=== PATIENT | male | born 1935 | race Hispanic/Latino ===

== ENCOUNTER 2017-07-19 10:51 | Observation (INO) | payer MEDICARE, MEDICAID ==
[2017-07-19 11:49] LABS: #Basophils 0.1 thou/uL (0.0-0.2); #Eosinphils 0.1 thou/uL (0.0-0.7); #Lymphocytes 1.8 thou/uL (1.20-3.40); #Monocytes 1.4 thou/uL (0.11-0.59); #Neutrophils 6.9 thou/uL (1.40-6.50); %Basophils 0.6 % (0.0-1.0); %Eosinophils 1.3 % (0.0-10.0); %Lymphocytes 17.5 % (21.0-51.0); %Monocytes 13.5 % (0.0-10.0); %Neutrophils 67.1 % (42.0-75.0); Hemoglobin 13.9 g/dL (14.0-18.0); Mean Corpuscular HGB CONC 34.4 g/dL (32.0-36.0); Mean Corpuscular Hemoglobin 31.9 pg (27.0-31.0); Mean Corpuscular Volume 92.9 fl (80.0-94.0); Mean Platelet Volume 7.3 fL (7.4-10.4); Platelet Count 312 thou/uL (130-400); RBC Distribution Width 11.7 % (11.5-14.5); Red Blood Cell (RBC) Count 4.35 mill/uL (4.70-6.10); White Blood Cell (WBC) Count 10.2 thou/uL (4.8-10.8)
[2017-07-19 11:50] LABS: CO2 Tension (PvCO2) 32.5 mmHg (41.0-51.0); Calcium, Ionized 0.94 mmol/L (1.12-1.32); Hemoglobin - Calc 15.1 g/dL (12.0-18.0); O2 Tension (PvO2) 54.6 mmHg (35.0-45.0); Potassium 4.1 mmol/L (3.4-4.7); pH (Venous) 7.459 (7.35-7.45)
[2017-07-19 12:24] LABS: CKMB 2.4 ng/mL (0-6.6); Troponin I Less than 0.010 ng/mL (< 0.028)
[2017-07-19 12:27] LABS: ALT (SGPT) 13 U/L (8-55); AST (SGOT) 17 U/L (5-34); Albumin 3.6 g/dL (3.4-4.8); Alkaline Phosphatase 74 U/L (40-150); BUN (Urea Nitrogen) 15 mg/dL (8.4-25.7); Bilirubin, Total 0.8 mg/dL (0.2-1.2); CK (CPK) 124 U/L (30-200); Calc. Creatinine Clearance 0 mL/min (70-130); Carbon Dioxide 22 mmol/L (23-31); Estimated GFR-MDRD 81; Globulin 4.5 g/dL (2.4-3.5); Glucose 168 mg/dL (83-110); Protein, Total 8.1 g/dL (5.8-8.1)
[2017-07-19 12:34] LABS: Anion Gap 14 mmol/L (10-20); Chloride 98 mmol/L (98-107); Potassium 4.2 mmol/L (3.5-5.1); Sodium 129 mmol/L (136-145)
[2017-07-19] MEDS ORDERED: cefTRIAXone\\ROCEPHIN 2 GM in Sodium Chloride 0.9% 100 ML IVPB ONE (13:00)
[2017-07-19] MEDS ORDERED: Azithromycin 500 MG in Sodium Chloride 0.9% 250 ML 250 ML IVPB ONE (13:00)
--- NOTE | 2017-07-19 13:01 | RAD ---
AP VIEW OF THE CHEST: INDICATION: Cough for 3 days. COMPARISON: Prior exam dated 04/08/14. FINDINGS: There are patchy airspace opacities seen most prominently within the right middle lobe and right lowe r lobe. Subtle opacities may also be present within the left lower lobe. No pleural effusion is candy dent. Heart size and pulmonary vasculature is within normal limits. IMPRESSION: Right basilar pneumonia. Possibly some mild infiltrate within the left lung base. Recommend radiogr aphic followup to resolution. POS: [facility]
[2017-07-19 15:01] LABS: Troponin I 0.019 ng/mL (< 0.028)
[2017-07-19] MEDS ORDERED: Sodium Chloride 0.9% 1,000 ML IV SCH (15:40)
[2017-07-19] MEDS ORDERED: HYDROcodone/Acetaminophen 5/325 mg Tablet PO PRN ×3 (15:40→15:51)
[2017-07-19] MEDS ORDERED: Acetaminophen 325 MG TAB PO PRN ×2 (15:40→15:51)
[2017-07-19] MEDS ORDERED: Ondansetron HCl/PF 4 MG/2 ML Vial IVP PRN ×2 (15:40→15:51)
[2017-07-19] MEDS ORDERED: Ondansetron ODT 4 MG TAB SL PRN (15:40)
[2017-07-19] MEDS ORDERED: HYDROcodone/Acetaminophen 10/325 mg Tablet PO PRN (15:51)
[2017-07-19] MEDS ORDERED: Guaifenesin DM 100-10/5 ML UDCUP PO PRN (15:51)
[2017-07-19] MEDS ORDERED: Ondansetron ODT 4 MG TAB PO PRN (15:51)
[2017-07-19] MEDS ORDERED: Dextrose 5% in Water 1,000 ML IV PRN (15:51)
[2017-07-19] MEDS ORDERED: Dextrose 50% Abboject 50 ML SYRINGE SLOW IVP PRN (15:51)
[2017-07-19] MEDS ORDERED: HumaLOG 300 UNITS/3 ML VIAL SC PRN (15:51)
[2017-07-19 15:56] VITALS: BMI 33.9
[2017-07-19] MEDS ORDERED: Enoxaparin Sodium 40 MG/0.4 ML SYRINGE SC SCH (16:00)
[2017-07-19] MEDS ORDERED: guaiFENesin ER 600 MG TAB PO SCH ×2 (16:00→21:00)
[2017-07-19] MEDS: Benzonatate 100 MG CAP PO PRN ×2 (16:17→20:57)
--- NOTE | 2017-07-19 22:08 | HP ---
DATE OF OBSERVATION: 07/19/2017 TIME OF SERVICE: 1300. PRIMARY CARE PHYSICIAN: Andrey Rodriguez M.D. CHIEF COMPLAINT: Cough. HISTORY OF PRESENT ILLNESS: Mr. Haynes is an 82-year-old Latin-Lux[place]bour[place] male with history of coronary artery disease, diabetes and hyperlipidemia, who presents to the Emergency Department for a 3-day history of cough and cold symptoms. He has had upper respiratory congestion, sore throat, and increasing cough productive of some tannish sputum. He has had some pain with coughing over the last 24 hours. His states he has had fevers, but never took them at home. No drenching sweats or rigors. No nausea or vomiting, no diarrhea or constipation. They called the ambulance today. On EMS transport, the patient received a DuoNeb. He has not required oxygen. On arrival to the ER, he was reportedly 100% on room air. He got a second nebulizer treatment for "diminished breath sounds," but no documentation of wheezing. The patient denies wheezing. His breathing treatments held just a little bit. He was given ceftriaxone and azithromycin, we were called for admission. The patient is sitting up in bed. He denies any other current complaints. He is feeling much better than he did this morning. PAST MEDICAL HISTORY: 1. Coronary artery disease. 2. Diabetes mellitus type 2, non-insulin dependent. 3. Hyperlipidemia, primary cholesterol. 4. Hypertension, essential. PAST SURGICAL HISTORY: Include; 1. PTCA with stent placement in the past. 2. Umbilical hernia repair, remotely. HOME MEDICATIONS: 1. Terbinafine 250 mg p.o. daily. 2. Glipizide 10 mg p.o. b.i.d. 3. Glucosamine 1500 mg daily. 4. Zocor 20 mg p.o. at bedtime. 5. Losartan 25 mg daily. 6. Flomax 0.4 mg p.o. at bedtime. 7. Levothyroxine 112 mcg daily. 8. Plavix 75 mg daily. 9. Finasteride 5 mg daily. 10. [place] 3 daily. 11. Omeprazole 20 mg daily. 12. Gabapentin 600 mg p.o. b.i.d. ALLERGIES: NKDA. FAMILY HISTORY: Negative for clotting or bleeding disorders. No immune dysfunction, no premature coronary artery disease. SOCIAL HISTORY: Negative for habits x3. He lives with his and his daughter at home. REVIEW OF SYSTEMS: A 10-point review of systems was performed, negative for all other systems except as stated as per HPI. PHYSICAL EXAMINATION: VITAL SIGNS: Temperature 98.7, pulse 81, blood pressure 140/91, respiratory rate 16 and satting 100% on room air. GENERAL: He is awake. He is alert. He is oriented x3. He is acutely ill appearing obese Latin-Luxembourger male who is in no distress. HEENT: Normocephalic and atraumatic. His pupils are equal and reactive to light bilaterally. Mucous membranes are moist. No visible lesions. No thrush. NECK: Supple. He has no lymphadenopathy, no JVD, no thyromegaly, no stridor. He has normal carotid upstrokes without bruits. RESPIRATORY: Clear to auscultation bilaterally anteriorly, posteriorly in the base, he does have some faint bibasilar crackles. He has no prolonged expiratory phase. No wheezes, no rhonchi. CARDIOVASCULAR: Normal S1 and S2. No S3 or S4. Has occasional APCs. He has no audible murmurs. ABDOMEN: Soft. It is obese. It is nontender and nondistended. He has no masses, no organomegaly. No rebound, rigidity, or guarding. He has normoactive bowel sounds present in all 4 quadrants. EXTREMITIES: No cyanosis, no clubbing. He has no edema. He has 1+ dorsalis pedis and 2+ posterior tibial pulses bilaterally. SKIN: Warm, moist and well perfused. No rashes or lesions. NEUROLOGIC: Cranial nerves II-XII are grossly intact. He has no focal neurologic deficits. He has normal speech pattern and 5/5 strength. MUSCULOSKELETAL: Hips, knees, elbows, shoulders, ankles and wrists are all normal to inspection. He has no palpable effusions and no signs of inflammation. LABORATORY DATA: Sodium is 129, potassium is 4.2, chloride 98, bicarbonate 22, BUN 15, creatinine 0.89, calcium 9.0 and glucose of 168. Liver functions are completely within normal limits. CBC showed a white count of 10.2 with a normal differential, hemoglobin is 13.9 , hematocrit of 40.4 and and platelet count is 312,000. BNP is normal at 71.4. CK-MB normal 2.4, and troponin I is undetectable and less than 0.010. IMAGING DATA: Chest x-ray showed right middle lobe, right lower lobe and possible left lower lobe patchy opacity. EKG is unchanged from his 2015. He has a normal sinus rhythm. He does have evidence of a right bundle branch block in the inferior leads. There are no ST-T changes. ASSESSMENT AND PLAN: 1. Community-acquired pneumonia: The patient has either atypical or viral pneumonia given his pattern of patchy opacities in multiple areas. We will put him on levofloxacin 500 mg daily. He received ceftriaxone and azithromycin in the Emergency Department to cover him today, so we will start him on levofloxacin in the morning. In the meantime, we will place him on Mucinex 1200 mg b.i.d., and have DuoNebs as needed. 2. Coronary artery disease, no chest pain except when he coughs. EKG is unchanged. His initial biomarkers were normal. 3. Diabetes mellitus type 2: Continue his glipizide. We will place him on sliding scale insulin q.i.d. a.c. and at bedtime Accu-Cheks. 4. Hyperlipidemia, primary cholesterol, on Zocor. We will continue. 5. Hypertension: Continue his home medications. The patient's CURB-65 score is only 1. Likely could be changed and treated as an outpatient; however, emergency room provider reports "diminished" breath sounds on arrival and did receive 2 DuoNebs before I had a chance to see him. The patient admitted to a small improvement with the [facility], so we will place him in observation and watch him overnight. MARIOLA
[2017-07-20 05:00] LABS: #Eosinphils 0.1 thou/uL (0.0-0.7); #Lymphocytes 2.1 thou/uL (1.20-3.40); #Monocytes 1.5 thou/uL (0.11-0.59); #Neutrophils 7.1 thou/uL (1.40-6.50); %Basophils 0.2 % (0.0-1.0); %Eosinophils 1.3 % (0.0-10.0); %Lymphocytes 19.6 % (21.0-51.0); %Monocytes 13.5 % (0.0-10.0); %Neutrophils 65.4 % (42.0-75.0); Hemoglobin 12.8 g/dL (14.0-18.0); Mean Corpuscular HGB CONC 33.5 g/dL (32.0-36.0); Mean Corpuscular Hemoglobin 31.3 pg (27.0-31.0); Mean Corpuscular Volume 93.3 fl (80.0-94.0); Mean Platelet Volume 7.2 fL (7.4-10.4); Platelet Count 308 thou/uL (130-400); RBC Distribution Width 11.6 % (11.5-14.5); Red Blood Cell (RBC) Count 4.09 mill/uL (4.70-6.10); White Blood Cell (WBC) Count 10.9 thou/uL (4.8-10.8)
[2017-07-20 05:24] LABS: Anion Gap 13 mmol/L (10-20); BUN (Urea Nitrogen) 16 mg/dL (8.4-25.7); Calc. Creatinine Clearance 67 mL/min (70-130); Calcium 8.6 mg/dL (7.8-10.44); Carbon Dioxide 23 mmol/L (23-31); Chloride 96 mmol/L (98-107); Estimated GFR-MDRD 76; Glucose 147 mg/dL (83-110); Potassium 3.9 mmol/L (3.5-5.1); Sodium 128 mmol/L (136-145)
[2017-07-20] MEDS: Benzonatate 100 MG CAP PO PRN (05:43)
[2017-07-20 07:58] VITALS: BP 142/69; TEMP 98.1
[2017-07-20] MEDS ORDERED: guaiFENesin ER 600 MG TAB PO SCH (09:00)
[2017-07-20] MEDS ORDERED: Enoxaparin Sodium 40 MG/0.4 ML SYRINGE SC SCH (09:00)
== END 2017-07-20 10:36 | disposition home or self-care (01) ==
LOC: ERS 10:51 → 2SW 13:47 → ERS 14:56 → 2SW 18:08
PROVIDERS: ADMIT Internal Medicine Infectious Disease; ATTEND Internal Medicine Infectious Disease
DX: J18.9 Pneumonia, unspecified organism (principal); I25.10 Atherosclerotic heart disease of native coronary artery without angina pectoris; E11.9 Type 2 diabetes mellitus without complications; E78.5 Hyperlipidemia, unspecified; I10 Essential (primary) hypertension; Z79.01 Long term (current) use of anticoagulants; Z79.84 Long term (current) use of oral hypoglycemic drugs; Z79.899 Other long term (current) drug therapy; Z95.5 Presence of coronary angioplasty implant and graft; Z98.890 Other specified postprocedural states
CPT/HCPCS: 71045; 80048; 80053; 82330; 82435; 82550; 82553; 82803; 82962; 83735; 83880; 84132; 84295; 84484 ×2; 85014; 85025 ×2; 87040; 87804 ×2; 93005; 94640; 96365; 96367; 96372 ×2; 97139; 99285; G0378; 36415; 36416; J0456; J0696; J1650; J7050; J7620

== ENCOUNTER 2020-06-08 23:20 | Inpatient (IN) | payer MEDICARE, MEDICAID ==
[2020-06-08] MEDS ORDERED: Senokot S 8.6-50 MG TAB PO PRN (23:56)
[2020-06-08] MEDS ORDERED: Acetaminophen 325 MG TAB PO PRN (23:56)
[2020-06-09] MEDS ORDERED: Dextrose 5% in Water 1,000 ML IV PRN (00:03)
[2020-06-09] MEDS ORDERED: Dextrose 50% Abboject 50 ML SYRINGE SLOW IVP PRN (00:03)
[2020-06-09] MEDS ORDERED: Benzonatate 100 MG CAP PO PRN (01:12)
--- NOTE | 2020-06-09 03:09 | HP ---
PRIMARY CARE PHYSICIAN: Dr. Rodriguez. CHIEF COMPLAINT: Decreased appetite, weakness. HISTORY OF PRESENT ILLNESS: Mr. Dallas Frank is an 85-year-old man who was brought to the emergency room in [place] on 06/08/2020 for generalized weakness, decreased activity, decreased oral intake for the past week. He has had a cough per family. They deny fevers, vomiting, diarrhea. Urinary output is diminished. Typically, he ambulates with the use of a walker, but for the past week he has been more somnolent and unwilling or unable to get up and do his normal activities. Reports appetite is decreased, oral fluid intake is decreased. Denies any known exposure to COVID-19. Has a past medical history of coronary artery disease. He has had an angioplasty in the past. He is diabetic type 2, hyperlipidemia, hypertension, hypothyroid. In the emergency room at [place], he was found to be positive for COVID-19. His blood work appeared abnormal when it was compared to the last lab work we have on file from 2018. White blood cell count 5.9, hemoglobin 11.8, hematocrit is 34.9, and platelet count 326. D-dimer elevated at 1.32. Sodium 135, potassium 4, BUN is 61, creatinine is 3.31. When the last value we had in our system of July of 2017, it was normal at 0.94, glucose was also elevated at 147. While he was in the emergency room, he was treated with dexamethasone, 1 g of Rocephin and 500 mL of fluid and then sent over to [facility] for a direct admission for further management. Chest x-ray in the emergency room shows prominent lung markings and few vaguely patchy areas in the lower lobes, upper right more than left and consistent with COVID in the right clinical setting. PAST MEDICAL HISTORY: See above. PAST SURGICAL HISTORY: He has had an umbilical hernia repair. PSYCHIATRIC HISTORY: None. SOCIAL HISTORY: He denies any alcohol drug use. No smoking history. ALLERGIES: NONE. HOME MEDICATIONS: 1. Plavix 75 mg p.o. daily. 2. Glipizide 10 mg p.o. b.i.d. 3. Glucosamine 1 cap p.o. daily. 4. Lamisil 250 mg p.o. daily. 5. Levothyroxine 112 mcg p.o. daily. 6. Losartan 25 mg p.o. daily. 7. Gabapentin 10 mg p.o. b.i.d. 8. Prilosec 20 mg p.o. daily. 9. Finasteride 5 mg p.o. daily. 10. Flomax 0.4 mg p.o. daily. 11. Tylenol Extra Strength 1000 mg p.o. at bedtime. 12. Zocor 20 mg p.o. at bedtime. REVIEW OF SYSTEMS: The patient reports fatigue, malaise, generalized weakness, cough. Denies fever or chills. Denies shortness of breath. Denies abdominal pain, nausea, vomiting, diarrhea. All systems were reviewed and are negative unless mentioned above or in HPI. PHYSICAL EXAMINATION: VITAL SIGNS: Temp is 97.7, pulse is 88, respiratory rate is 18, pO2 sats are 100% on room air, blood pressure is 147/74. CONSTITUTIONAL: He is alert and oriented to person, place, and time and appears nontoxic. HEAD: Atraumatic and normocephalic. Mucous membranes are dry. NECK: Normal range of motion. No tenderness. RESPIRATORY: Decreased lung sounds in bilateral lower lobes. Chest expansion is equal. CARDIOVASCULAR: Regular rate and rhythm. Heart sounds are normal. ABDOMEN: Nontender. Bowel sounds are heard. BACK: Normal range of motion. No tenderness. EXTREMITIES: Lower extremity, normal range of motion. Motor strength is normal. Pedal pulses are normal. NEUROLOGIC: He is oriented to person and place. SKIN: Warm, dry and normal in color. IMAGING: The EKG in the emergency room shows beats per minute 75. Complete right bundle-branch normal sinus rhythm, left axis deviation, right bundle branch block. PLAN/ASSESSMENT: 1. COVID-19 pneumonia. The patient was given dexamethasone 10 in the emergency room at [place]. We will continue this 6 mg p.o. daily. We are ordering a ferritin, TSH, LDH. He will wear albuterol inhaler as needed, . 2. Acute kidney injury. Creatinine up to 3. The last time it was checked here in 2018, it was normal. We have added a nephrology consult. We will hold any nephrotoxic medication. 3. History of hypothyroidism. Check a thyroid stimulating hormone level. Restart home levothyroxine dose. 4. History of hypertension. We will restart his home medications. 5. History of hyperlipidemia. We will check fasting lipids. Restart his home medication. 6. History of diabetes type 2, before meals and at bedtime Accu-Cheks with sliding scale for coverage. 7. We will check an A1c. 8. Sequential compression devices for deep venous thrombosis prophylaxis. 9. We will restart his proton pump inhibitor for peptic ulcer disease prevention. 10. Case discussed with Dr. Brewer. 11. Hospital course dependent on clinical findings. Job ID: [id number]
[2020-06-09] MEDS: HumaLOG 300 UNITS/3 ML VIAL SC PRN ×4 (04:24→20:00)
[2020-06-09] MEDS: Levothyroxine Sodium 112 MCG TAB PO SCH (04:25)
[2020-06-09 07:40] LABS: #Lymphocytes 0.5 thou/uL (1.20-3.40); #Monocytes 0.1 thou/uL (0.11-0.59); #Neutrophils 2.5 thou/uL (1.40-6.50); %Eosinophils 0.1 % (0.0-10.0); %Monocytes 1.7 % (0.0-10.0); %Neutrophils 83.2 % (42.0-75.0); Hemoglobin 11.8 g/dL (14.0-18.0); Mean Corpuscular HGB CONC 33.2 g/dL (32.0-36.0); Mean Corpuscular Hemoglobin 29.6 pg (27.0-31.0); Platelet Count 364 thou/uL (130-400); RBC Distribution Width 12.2 % (11.5-14.5)
[2020-06-09 07:55] LABS: ALT (SGPT) 14 U/L (8-55); AST (SGOT) 26 U/L (5-34); Albumin 3.5 g/dL (3.4-4.8); Alkaline Phosphatase 94 U/L (40-110); Anion Gap 20 mmol/L (10-20); BUN (Urea Nitrogen) 58 mg/dL (8.4-25.7); Bilirubin, Total 0.4 mg/dL (0.2-1.2); CRP (Inflammatory) 10.68 mg/dL (= or < 0.5); Calc. Creatinine Clearance 20 mL/min (70-130); Calcium 8.7 mg/dL (7.8-10.44); Carbon Dioxide 15 mmol/L (23-31); Cardiac Risk 4.9 (Less than 4.5); Chloride 104 mmol/L (98-107); Globulin 4.6 g/dL (2.4-3.5); Glucose 201 mg/dL (83-110); Potassium 4.3 mmol/L (3.5-5.1); Protein, Total 8.1 g/dL (5.8-8.1); Sodium 135 mmol/L (136-145)
[2020-06-09] MEDS ORDERED: Dexamethasone 4 MG TAB PO SCH (08:00)
[2020-06-09] MEDS: Gabapentin 100 MG CAP PO SCH ×2 (08:00→20:02)
[2020-06-09] MEDS: Clopidogrel Bisulfate 75 MG TAB PO SCH (08:00)
[2020-06-09] MEDS: guaiFENesin ER 600 MG TAB PO SCH ×2 (08:01→20:01)
[2020-06-09 08:11] LABS: Ferritin 252.26 ng/mL (22-322); Thyroid Stimulating Hormone 1.375 uIU/mL (0.35-4.94)
[2020-06-09] MEDS ORDERED: Enoxaparin Sodium 40 MG/0.4 ML SYRINGE SC SCH (09:00)
[2020-06-09] MEDS ORDERED: Losartan 25 MG TAB PO SCH (09:00)
[2020-06-09] MEDS: Sodium Chloride 0.9% 1,000 ML IV SCH (09:59)
[2020-06-09] MEDS: Heparin 5,000 UNITS/ML VIAL SC SCH ×2 (14:49→20:03)
--- NOTE | 2020-06-09 16:47 | PDOC.HOSPP ---
- Subjective Encounter Date: 06/09/20 Encounter Time: 10:30 Subjective: Patient sitting up on the side of the bed no complaints. - Objective Vital Signs & Weight: Vital Signs (12 hours) Temp Pulse Resp BP BP Pulse Ox 06/09/20 11:00 97.3 F L 77 20 128/69 99 06/09/20 08:00 97.4 F L 86 20 107/65 100 Weight Weight 184 lb 12.8 oz I&O: 06/08/20 06/09/20 06/10/20 06:59 06:59 06:59 Intake Total 480 Balance 480 Result Diagrams: 06/09/20 06:57 06/09/20 06:57 Additional Labs: Accuchecks 06/09/20 06/09/20 06/09/20 11:18 04:17 01:41 POC Glucose 238 H 220 H 187 H Hospitalist ROS - Review of Systems Cardiovascular: denies: chest pain, palpitations, orthopnea, paroxysmal noc. dyspnea, edema, light headedness, other Gastrointestinal: denies: nausea, vomiting, abdominal pain, diarrhea, constipation, melena, hematochezia, other Genitourinary: denies: dysuria, frequency, incontinence, hematuria, retention, other - Medication Medications: Active Medications Generic Name Dose Route Start Last Admin Trade Name Freq PRN Reason Stop Dose Admin Clopidogrel Bisulfate 75 mg 06/09/20 09:00 06/09/20 08:00 Clopidogrel Bisulfate 75 Mg Tab PO 75 mg DAILY QUEENIE Administration Gabapentin 100 mg 06/09/20 09:00 06/09/20 08:00 Gabapentin 100 Mg Cap PO 100 mg BID QUEENIE Administration Guaifenesin 1,200 mg 06/09/20 09:00 06/09/20 08:01 Guaifenesin Er 600 Mg Tab PO 1,200 mg Q12HR QUEENIE Administration Heparin Sodium (Porcine) 5,000 units 06/09/20 15:00 06/09/20 14:49 Heparin 5,000 Units/Ml Vial SC 5,000 units TID QUEENIE Administration Sodium Chloride 1,000 mls @ 50 mls/hr 06/09/20 10:00 06/09/20 09:59 Normal Saline 0.9% IV 1,000 mls .Q20H QUEENIE Administration Insulin Human Lispro 0 units 06/09/20 00:03 06/09/20 12:08 Humalog 300 Units/3 Ml Vial SC 3 units .MILD SLIDING SCALE PRN Administration Mild Correctional Scale Levothyroxine Sodium 112 mcg 06/09/20 06:00 06/09/20 04:25 Levothyroxine Sodium 112 Mcg Tab PO 112 mcg 0600 QUEENIE Administration Pantoprazole Sodium 40 mg 06/09/20 09:00 06/09/20 08:00 Pantoprazole 40 Mg Tab PO 40 mg DAILY QUEENIE Administration - Exam Neck: negative: supple, symmetric, no JVD, no thyromegaly, no lymphadenopathy, no carotid bruit, JVD Heart: negative: RRR, no murmur, no gallops, no rubs, normal peripheral pulses, irregular, diminshed peripheral pulses, murmur present, II/IV, III/IV Respiratory: rhonchi Gastrointestinal: negative: soft, non-tender, non-distended, normal bowel sounds, no palpable masses, no hepatomegaly, no splenomegaly, no bruit, no guarding, no rigidity, tender to palpation, distended, diminished bowl sounds, voluntary guarding Hosp A/P (1) Acute respiratory failure with hypoxia Code(s): J96.01 - ACUTE RESPIRATORY FAILURE WITH HYPOXIA Status: Acute (2) Acute kidney injury Code(s): N17.9 - ACUTE KIDNEY FAILURE, UNSPECIFIED Status: Acute (3) COVID-19 Code(s): U07.1 - COVID-19 Status: Acute (4) DM2 (diabetes mellitus, type 2) Status: Acute (5) HLD (hyperlipidemia) Code(s): E78.5 - HYPERLIPIDEMIA, UNSPECIFIED Status: Acute (6) HTN (hypertension) Code(s): I10 - ESSENTIAL (PRIMARY) HYPERTENSION Status: Acute - Plan Patient is not a candidate for remdesivir given his elevated creatinine. We will continue IV steroids, DVT prophylaxis with heparin. Will check INR and CRP in a.m. We will continue home medications. Patient has been on room air I will talk with the nurse to see if they can ambulate the patient to see if he desats. If he does not require oxygen he probably does not require steroids.
[2020-06-09] MEDS: Atorvastatin Calcium 10 MG TAB PO SCH (20:02)
--- NOTE | 2020-06-09 20:36 | ULT ---
Renal sonogram HISTORY: Renal failure. FINDINGS: The right kidney is 9.0 cm length and the left is 11.0 cm. Diffuse thinning of the cortex. No hydronephrosis. 3.9 cm exophytic cyst projects superiorly from the cortex of the left kidney. Urinary bladder has a normal appearance with bilateral ureteral jets. IMPRESSION : No acute abnormalities are demonstrated.
--- NOTE | 2020-06-09 21:12 | CON ---
DATE OF CONSULTATION: 06/09/2020 CONSULTING PHYSICIAN: JUSTIN Shultz REASON FOR CONSULTATION: Acute kidney injury. REASON FOR ADMISSION: Weakness. HISTORY OF PRESENT ILLNESS: This is an 85-year-old male with history of diabetes, hyperlipidemia, hypertension, hypothyroidism, came to the hospital with weakness and is being admitted. He was found to have acute kidney injury with creatinine of 3.3, is improved to 3.1. Baseline creatinine 0.9. Nephrology consulted. The patient is also COVID-19 positive. PAST MEDICAL HISTORY: Positive for; 1. Type 2 diabetes. 2. Hypertension. 3. Hyperlipidemia. 4. Hypothyroidism. 5. Coronary artery disease. 6. COVID-19 infection. PAST SURGICAL HISTORY: Umbilical repair. HOME MEDICATIONS: Reviewed. ALLERGIES: NO KNOWN DRUG ALLERGIES. SOCIAL HISTORY: No smoking, alcohol, or illicit drugs. FAMILY HISTORY: No history of kidney disease. REVIEW OF SYSTEMS: Could not be obtained. PHYSICAL EXAMINATION: VITAL SIGNS: Temperature 97.3, pulse 77, respiratory rate 20, blood pressure 128/69. The patient is on COVID isolation. LABORATORY DATA: Potassium is 4.3, BUN is 58, creatinine is 3.1. Hemoglobin 11.8. ASSESSMENT AND PLAN: 1. Acute kidney injury secondary to hemodynamic injury. Agree with hydration. Avoid nephrotoxins. 2. Edema. 3. History of hypertension. 4. Hyponatremia. Plan is to start gentle hydration. Check renal ultrasound and we will follow. Job ID: [id number]
[2020-06-10] MEDS: HumaLOG 300 UNITS/3 ML VIAL SC PRN ×4 (06:06→20:00)
[2020-06-10] MEDS: Sodium Chloride 0.9% 1,000 ML IV SCH (06:07)
[2020-06-10] MEDS: Levothyroxine Sodium 112 MCG TAB PO SCH (06:07)
[2020-06-10 07:28] LABS: INR-International Normal Ratio 1.2; PTT 33.2 sec (22.9-36.1); Prothrombin Time 15.2 sec (12.0-14.7)
[2020-06-10 07:42] LABS: ALT (SGPT) 11 U/L (8-55); AST (SGOT) 19 U/L (5-34); Albumin 3.3 g/dL (3.4-4.8); Alkaline Phosphatase 77 U/L (40-110); Anion Gap 12 mmol/L (10-20); BUN (Urea Nitrogen) 61 mg/dL (8.4-25.7); Bilirubin, Total 0.4 mg/dL (0.2-1.2); CRP (Inflammatory) 5.15 mg/dL (= or < 0.5); Calc. Creatinine Clearance 22 mL/min (70-130); Calcium 8.3 mg/dL (7.8-10.44); Carbon Dioxide 17 mmol/L (23-31); Chloride 107 mmol/L (98-107); Globulin 3.9 g/dL (2.4-3.5); Glucose 168 mg/dL (83-110); Potassium 4.1 mmol/L (3.5-5.1); Protein, Total 7.2 g/dL (5.8-8.1); Sodium 132 mmol/L (136-145)
[2020-06-10] MEDS: Dexamethasone 4 mg/ml Vial SLOW IVP SCH (08:02)
[2020-06-10] MEDS: Heparin 5,000 UNITS/ML VIAL SC SCH ×3 (08:03→20:01)
[2020-06-10] MEDS: Clopidogrel Bisulfate 75 MG TAB PO SCH (08:03)
[2020-06-10] MEDS: Tamsulosin HCl 0.4 MG CAP PO SCH (08:03)
[2020-06-10] MEDS: Gabapentin 100 MG CAP PO SCH ×2 (08:03→20:03)
[2020-06-10] MEDS: guaiFENesin ER 600 MG TAB PO SCH ×2 (08:03→20:04)
[2020-06-10] MEDS: Finasteride 5 MG TAB PO SCH (08:03)
[2020-06-10] MEDS ORDERED: Dexamethasone 20 MG/5 ML VIAL SLOW IVP SCH (09:00)
--- NOTE | 2020-06-10 13:43 | PDOC.HOSPP ---
- Subjective Encounter Date: 06/10/20 Encounter Time: 12:30 Subjective: pt up in bed no complains - Objective Vital Signs & Weight: Vital Signs (12 hours) Temp Pulse Resp BP Pulse Ox 06/10/20 11:17 97.3 F L 66 20 121/64 95 06/10/20 08:27 95 06/10/20 07:36 97.3 F L 62 18 125/63 95 06/10/20 04:00 97.3 F L 62 126/53 L 99 Weight Weight 184 lb 12.8 oz I&O: 06/09/20 06/10/20 06/11/20 06:59 06:59 06:59 Intake Total 720 Balance 720 Result Diagrams: 06/09/20 06:57 06/10/20 07:02 Additional Labs: Accuchecks 06/10/20 06/10/20 06/09/20 11:06 04:39 19:44 POC Glucose 257 H 172 H 257 H 06/09/20 16:53 POC Glucose 238 H Hospitalist ROS - Review of Systems Cardiovascular: denies: chest pain, palpitations, orthopnea, paroxysmal noc. dyspnea, edema, light headedness, other Gastrointestinal: denies: nausea, vomiting, abdominal pain, diarrhea, constipation, melena, hematochezia, other Genitourinary: denies: dysuria, frequency, incontinence, hematuria, retention, other - Medication Medications: Active Medications Generic Name Dose Route Start Last Admin Trade Name Freq PRN Reason Stop Dose Admin Atorvastatin Calcium 10 mg 06/09/20 21:00 06/09/20 20:02 Atorvastatin Calcium 10 Mg Tab PO 10 mg HS QUEENIE Administration Clopidogrel Bisulfate 75 mg 06/09/20 09:00 06/10/20 08:03 Clopidogrel Bisulfate 75 Mg Tab PO 75 mg DAILY QUEENIE Administration Dexamethasone 6 mg 06/10/20 09:00 06/10/20 08:02 Dexamethasone 4 Mg/Ml Vial SLOW IVP 6 mg DAILY QUEENIE Administration Finasteride 5 mg 06/10/20 09:00 06/10/20 08:03 Finasteride 5 Mg Tab PO 5 mg DAILY QUEENIE Administration Gabapentin 100 mg 06/09/20 09:00 06/10/20 08:03 Gabapentin 100 Mg Cap PO 100 mg BID QUEENIE Administration Guaifenesin 1,200 mg 06/09/20 09:00 06/10/20 08:03 Guaifenesin Er 600 Mg Tab PO 1,200 mg Q12HR QUEENIE Administration Heparin Sodium (Porcine) 5,000 units 06/09/20 15:00 06/10/20 08:03 Heparin 5,000 Units/Ml Vial SC 5,000 units TID QUEENIE Administration Sodium Chloride 1,000 mls @ 50 mls/hr 06/09/20 10:00 06/10/20 06:07 Normal Saline 0.9% IV 1,000 mls .Q20H QUEENIE Administration Insulin Human Lispro 0 units 06/09/20 00:03 06/10/20 11:22 Humalog 300 Units/3 Ml Vial SC 4 units .MILD SLIDING SCALE PRN Administration Mild Correctional Scale Insulin Human Lispro 0 units 06/09/20 00:03 06/09/20 20:00 Humalog 300 Units/3 Ml Vial SC 3 unit .BEDTIME SLIDING SC PRN Administration Bedtime Correctional Scale Levothyroxine Sodium 112 mcg 06/09/20 06:00 06/10/20 06:07 Levothyroxine Sodium 112 Mcg Tab PO 112 mcg 0600 QUEENIE Administration Pantoprazole Sodium 40 mg 06/09/20 09:00 06/10/20 08:03 Pantoprazole 40 Mg Tab PO 40 mg DAILY QUEENIE Administration Tamsulosin HCl 0.4 mg 06/10/20 09:00 06/10/20 08:03 Tamsulosin Hcl 0.4 Mg Cap PO 0.4 mg DAILY QUEENIE Administration - Exam Heart: negative: RRR, no murmur, no gallops, no rubs, normal peripheral pulses, irregular, diminshed peripheral pulses, murmur present, II/IV, III/IV Respiratory: negative: CTAB, no wheezes, no rales, no ronchi, normal chest expansion, no tachypnea, normal percussion, rales, rhonchi, tachypneic, wheezes Gastrointestinal: negative: soft, non-tender, non-distended, normal bowel sounds, no palpable masses, no hepatomegaly, no splenomegaly, no bruit, no guarding, no rigidity, tender to palpation, distended, diminished bowl sounds, voluntary guarding Extremities: 1+ LE edema Hosp A/P (1) Acute respiratory failure with hypoxia Code(s): J96.01 - ACUTE RESPIRATORY FAILURE WITH HYPOXIA Status: Acute (2) Acute kidney injury Code(s): N17.9 - ACUTE KIDNEY FAILURE, UNSPECIFIED Status: Acute (3) COVID-19 Code(s): U07.1 - COVID-19 Status: Acute (4) DM2 (diabetes mellitus, type 2) Status: Acute (5) HLD (hyperlipidemia) Code(s): E78.5 - HYPERLIPIDEMIA, UNSPECIFIED Status: Acute (6) HTN (hypertension) Code(s): I10 - ESSENTIAL (PRIMARY) HYPERTENSION Status: Acute - Plan Patient is not a candidate for remdesivir given his elevated creatinine. We will continue IV steroids, DVT prophylaxis with heparin. Will check INR and CRP in a.m. We will continue home medications. Patient has been on room air I will talk with the nurse to see if they can ambulate the patient to see if he desats. If he does not require oxygen he probably does not require steroids. 06/10 pt is not a candidate for remdesivir. Creatinine is improving. will continue to monitor. Tried to call pt's daughter Yvonne was unable to leave message since her voicemail has not been set up. Tried to call pt's granddaughter which stated not taking calls at this time.
[2020-06-10] MEDS ORDERED: Insulin Glargine 8 UNITS in Pre-Filled Syringe 1 EACH SC SCH (13:45)
--- NOTE | 2020-06-10 14:42 | PRG ---
DATE OF SERVICE: 06/10/2020 SUBJECTIVE: The patient is in COVID isolation. OBJECTIVE: VITAL SIGNS: Temperature 97.3, pulse respiratory rate 20, pressure 121/64, oxygen saturation 95% on room air. LABORATORY DATA: Potassium 4.1, BUN is 61, creatinine is 2.8 from 3.1 yesterday. ASSESSMENT AND PLAN: 1. Acute kidney injury on chronic kidney disease, stage 2. Continue hydration if tolerated. 2. History of hypertension. 3. Hyponatremia. 4. Edema, mild. 5. Hypoalbuminemia. Continue hydration. Monitor labs and cardiac respiratory status. Job ID: [id number]
[2020-06-10] MEDS: Atorvastatin Calcium 10 MG TAB PO SCH (20:03)
[2020-06-11] MEDS: Sodium Chloride 0.9% 1,000 ML IV SCH ×3 (01:00→20:22)
[2020-06-11] MEDS: Levothyroxine Sodium 112 MCG TAB PO SCH (05:05)
[2020-06-11] MEDS: Heparin 5,000 UNITS/ML VIAL SC SCH ×3 (08:01→20:05)
[2020-06-11] MEDS: Dexamethasone 4 mg/ml Vial SLOW IVP SCH (08:01)
[2020-06-11] MEDS: Finasteride 5 MG TAB PO SCH (08:02)
[2020-06-11] MEDS: Gabapentin 100 MG CAP PO SCH ×2 (08:02→20:04)
[2020-06-11] MEDS: Clopidogrel Bisulfate 75 MG TAB PO SCH (08:02)
[2020-06-11] MEDS: guaiFENesin ER 600 MG TAB PO SCH ×2 (08:02→20:04)
[2020-06-11] MEDS: Tamsulosin HCl 0.4 MG CAP PO SCH (08:02)
--- NOTE | 2020-06-11 08:53 | PDOC.HOSPP ---
- Subjective Encounter Date: 06/11/20 Encounter Time: 11:00 Subjective: Patient without complaints. He states that he has been ambulating. However per physical therapy notes patient needs significant assistance and they recommend rehab. - Objective Vital Signs & Weight: Vital Signs (12 hours) Temp Pulse Resp BP Pulse Ox 06/11/20 07:29 97.3 F L 116 H 20 141/56 H 100 06/11/20 04:49 97.3 F L 60 18 128/64 98 06/11/20 01:11 65 16 147/62 H 99 Weight Weight 184 lb 12.8 oz I&O: 06/10/20 06/11/20 06/12/20 06:59 06:59 06:59 Intake Total 1680 2400 Output Total 725 Balance 955 2400 Result Diagrams: 06/09/20 06:57 06/11/20 11:39 Additional Labs: Accuchecks 06/11/20 06/10/20 06/10/20 04:42 19:58 16:17 POC Glucose 130 H 224 H 207 H 06/10/20 11:06 POC Glucose 257 H Hospitalist ROS - Review of Systems Constitutional: denies: fever, chills Respiratory: denies: cough, shortness of breath Cardiovascular: denies: chest pain, palpitations Gastrointestinal: denies: nausea, vomiting, abdominal pain - Medication Medications: Active Medications Generic Name Dose Route Start Last Admin Trade Name Freq PRN Reason Stop Dose Admin Atorvastatin Calcium 10 mg 06/09/20 21:00 06/10/20 20:03 Atorvastatin Calcium 10 Mg Tab PO 10 mg HS QUEENIE Administration Clopidogrel Bisulfate 75 mg 06/09/20 09:00 06/11/20 08:02 Clopidogrel Bisulfate 75 Mg Tab PO 75 mg DAILY QUEENIE Administration Dexamethasone 6 mg 06/10/20 09:00 06/11/20 08:01 Dexamethasone 4 Mg/Ml Vial SLOW IVP 6 mg DAILY QUEENIE Administration Finasteride 5 mg 06/10/20 09:00 06/11/20 08:02 Finasteride 5 Mg Tab PO 5 mg DAILY UQEENIE Administration Gabapentin 100 mg 06/09/20 09:00 06/11/20 08:02 Gabapentin 100 Mg Cap PO 100 mg BID QUEENIE Administration Guaifenesin 1,200 mg 06/09/20 09:00 06/11/20 08:02 Guaifenesin Er 600 Mg Tab PO 1,200 mg Q12HR QUEENIE Administration Heparin Sodium (Porcine) 5,000 units 06/09/20 15:00 06/11/20 08:01 Heparin 5,000 Units/Ml Vial SC 5,000 units TID QUEENIE Administration Sodium Chloride 1,000 mls @ 50 mls/hr 06/09/20 10:00 06/11/20 01:00 Normal Saline 0.9% IV 1,000 mls .Q20H QUEENIE Administration Insulin Human Lispro 0 units 06/09/20 00:03 06/10/20 16:32 Humalog 300 Units/3 Ml Vial SC 3 units .MILD SLIDING SCALE PRN Administration Mild Correctional Scale Insulin Human Lispro 0 units 06/09/20 00:03 06/10/20 20:00 Humalog 300 Units/3 Ml Vial SC 2 unit .BEDTIME SLIDING SC PRN Administration Bedtime Correctional Scale Levothyroxine Sodium 112 mcg 06/09/20 06:00 06/11/20 05:05 Levothyroxine Sodium 112 Mcg Tab PO 112 mcg 0600 QUEENIE Administration Pantoprazole Sodium 40 mg 06/09/20 09:00 06/11/20 08:02 Pantoprazole 40 Mg Tab PO 40 mg DAILY QUEENIE Administration Tamsulosin HCl 0.4 mg 06/10/20 09:00 06/11/20 08:02 Tamsulosin Hcl 0.4 Mg Cap PO 0.4 mg DAILY QUEENIE Administration - Exam General Appearance: NAD, awake alert ENT: moist mucosa Heart: RRR, no murmur, no gallops, no rubs Respiratory: CTAB, no wheezes, no rales, no ronchi Gastrointestinal: soft, non-tender, non-distended, normal bowel sounds Psychiatric: normal affect, normal behavior, A&O x 3 Hosp A/P (1) Acute kidney injury Code(s): N17.9 - ACUTE KIDNEY FAILURE, UNSPECIFIED Status: Acute (2) COVID-19 Code(s): U07.1 - COVID-19 Status: Acute (3) CAD (coronary artery disease) Code(s): I25.10 - ATHSCL HEART DISEASE OF [place] CORONARY ARTERY W/O ANG PCTRS Status: Chronic (4) DM2 (diabetes mellitus, type 2) Status: Chronic (5) HLD (hyperlipidemia) Code(s): E78.5 - HYPERLIPIDEMIA, UNSPECIFIED Status: Chronic (6) HTN (hypertension) Code(s): I10 - ESSENTIAL (PRIMARY) HYPERTENSION Status: Chronic - Plan 06/09 Patient is not a candidate for remdesivir given his elevated creatinine. We will continue IV steroids, DVT prophylaxis with heparin. Will check INR and CRP in a.m. We will continue home medications. Patient has been on room air I will talk with the nurse to see if they can ambulate the patient to see if he desats. If he does not require oxygen he probably does not require steroids. 06/10 pt is not a candidate for remdesivir. Creatinine is improving. will continue to monitor. Tried to call pt's daughter Yvonne was unable to leave message since her voicemail has not been set up. Tried to call pt's granddaughter which stated not taking calls at this time. 06/11 Patient improving with PT. Not requiring any oxygen his entire stay so will d/c dexamethasone. Creatinine improved with IV fluids, now stalled out around 2.8-2.9. Will discuss with Dr. Still and see if needs further inpatient care. Otherwise patient likely can go home with home health PT/OT if continues to improve in the next 24 hours. If not able to go home, will need SNF stay due to his Covid-19 positive status.
[2020-06-11] MEDS: HumaLOG 300 UNITS/3 ML VIAL SC PRN ×2 (11:39→16:27)
[2020-06-11 12:15] LABS: Anion Gap 15 mmol/L (10-20); BUN (Urea Nitrogen) 67 mg/dL (8.4-25.7); Calc. Creatinine Clearance 21 mL/min (70-130); Calcium 7.9 mg/dL (7.8-10.44); Carbon Dioxide 18 mmol/L (23-31); Chloride 108 mmol/L (98-107); Glucose 195 mg/dL (83-110); Potassium 4.5 mmol/L (3.5-5.1); Sodium 136 mmol/L (136-145)
--- NOTE | 2020-06-11 19:20 | PRG ---
DATE OF SERVICE: 06/11/2020 SUBJECTIVE: An 85-year-old gentleman, being seen for acute kidney injury. The patient denied nausea, vomiting, or chest pain. PHYSICAL EXAMINATION: GENERAL: The patient is awake and alert. VITAL SIGNS: Afebrile, pulse 75, breathing at 16, blood pressure 148/70. HEENT: Head normocephalic and atraumatic. Eyes intact, no ulcers. Nose intact, no ulcers. Ears intact, no ulcers. NECK: Supple. No JVD. CHEST: Symmetrical and clear. CARDIOVASCULAR: Shows S1 and S2, no rub, no murmur. GASTROINTESTINAL: Abdomen is soft, bowel sounds positive. EXTREMITIES: Show no edema or ulcers. SKIN: Shows no rash or petechiae. MUSCULOSKELETAL: Shows no joint swelling or stiffness. GENITOURINARY: Shows no Lugo or CVA tenderness. NEUROLOGIC: Motor intact. Cranial nerves intact. LABORATORY DATA: Reviewed. ASSESSMENT AND PLAN: 1. Acute kidney injury on chronic kidney disease, stage 4. Creatinine is slightly worsened. No indication for dialysis. 2. Hypertension, stable. 3. Anemia, stable. Medication based on GFR appropriate. We will follow closely. Job ID: [id number]
[2020-06-11] MEDS: Atorvastatin Calcium 10 MG TAB PO SCH (20:04)
[2020-06-12] MEDS: Levothyroxine Sodium 112 MCG TAB PO SCH (05:42)
[2020-06-12] MEDS: Clopidogrel Bisulfate 75 MG TAB PO SCH (07:52)
[2020-06-12] MEDS: Gabapentin 100 MG CAP PO SCH (07:52)
[2020-06-12] MEDS: Heparin 5,000 UNITS/ML VIAL SC SCH ×2 (07:53→14:41)
[2020-06-12] MEDS: Tamsulosin HCl 0.4 MG CAP PO SCH (07:53)
[2020-06-12] MEDS: guaiFENesin ER 600 MG TAB PO SCH (07:53)
[2020-06-12] MEDS: Finasteride 5 MG TAB PO SCH (07:53)
--- NOTE | 2020-06-12 08:23 | PDOC.HOSPP ---
- Subjective Encounter Date: 06/12/20 Encounter Time: 11:00 Subjective: Patient remains confused but in no distress. [place]ambican-speaking only so commissary production supervisor used. Patient alert and oriented to person only. Does not know why he is in the hospital. Wants to go home. Denies complaints. - Objective Vital Signs & Weight: Vital Signs (12 hours) Temp Pulse Resp BP BP Pulse Ox 06/12/20 08:10 97.6 F 66 18 154/71 H 99 06/12/20 04:05 97.2 F L 62 18 148/71 H 99 Weight Weight 184 lb 12.8 oz I&O: 06/11/20 06/12/20 06/13/20 06:59 06:59 06:59 Intake Total 2400 2600 Output Total 525 Balance 2400 2075 Result Diagrams: 06/09/20 06:57 06/12/20 08:43 Additional Labs: Accuchecks 06/11/20 06/11/20 06/11/20 20:12 15:47 11:20 POC Glucose 211 H 185 H 185 H Hospitalist ROS - Review of Systems ROS unobtainable: due to mental status - Medication Medications: Active Medications Generic Name Dose Route Start Last Admin Trade Name Freq PRN Reason Stop Dose Admin Atorvastatin Calcium 10 mg 06/09/20 21:00 06/11/20 20:04 Atorvastatin Calcium 10 Mg Tab PO 10 mg HS QUEENIE Administration Clopidogrel Bisulfate 75 mg 06/09/20 09:00 06/12/20 07:52 Clopidogrel Bisulfate 75 Mg Tab PO 75 mg DAILY QUEENIE Administration Finasteride 5 mg 06/10/20 09:00 06/12/20 07:53 Finasteride 5 Mg Tab PO 5 mg DAILY QUEENIE Administration Gabapentin 100 mg 06/09/20 09:00 06/12/20 07:52 Gabapentin 100 Mg Cap PO 100 mg BID QUEENIE Administration Guaifenesin 1,200 mg 06/09/20 09:00 06/12/20 07:53 Guaifenesin Er 600 Mg Tab PO 1,200 mg Q12HR QUEENIE Administration Heparin Sodium (Porcine) 5,000 units 06/09/20 15:00 06/12/20 07:53 Heparin 5,000 Units/Ml Vial SC 5,000 units TID QUEENIE Administration Sodium Chloride 1,000 mls @ 50 mls/hr 06/09/20 10:00 06/11/20 20:22 Normal Saline 0.9% IV Not Given .Q20H QUEENIE Insulin Human Lispro 0 units 06/09/20 00:03 06/11/20 16:27 Humalog 300 Units/3 Ml Vial SC 2 units .MILD SLIDING SCALE PRN Administration Mild Correctional Scale Insulin Human Lispro 0 units 06/09/20 00:03 06/10/20 20:00 Humalog 300 Units/3 Ml Vial SC 2 unit .BEDTIME SLIDING SC PRN Administration Bedtime Correctional Scale Levothyroxine Sodium 112 mcg 06/09/20 06:00 06/12/20 05:42 Levothyroxine Sodium 112 Mcg Tab PO 112 mcg 0600 QUEENIE Administration Pantoprazole Sodium 40 mg 06/09/20 09:00 06/12/20 07:53 Pantoprazole 40 Mg Tab PO 40 mg DAILY QUEENIE Administration Tamsulosin HCl 0.4 mg 06/10/20 09:00 06/12/20 07:53 Tamsulosin Hcl 0.4 Mg Cap PO 0.4 mg DAILY QUEENIE Administration Hospitalist Exam Vitals: Vital Signs (12 hours) Temp Pulse Resp BP BP Pulse Ox 06/12/20 08:10 97.6 F 66 18 154/71 H 99 06/12/20 04:05 97.2 F L 62 18 148/71 H 99 Weight Weight 184 lb 12.8 oz General Appearance: NAD, awake alert ENT: moist mucosa Heart: RRR, no murmur, no gallops, no rubs Respiratory: CTAB, no wheezes, no rales, no ronchi Gastrointestinal: soft, non-tender, non-distended, normal bowel sounds Extremities: no edema Neurological: cranial nerve grossly intact, no focal deficits Psychiatric: normal affect, normal behavior, oriented to person. negative: oriented to place, oriented to time Hosp A/P (1) Acute kidney injury Code(s): N17.9 - ACUTE KIDNEY FAILURE, UNSPECIFIED Status: Acute (2) COVID-19 Code(s): U07.1 - COVID-19 Status: Acute (3) CAD (coronary artery disease) Code(s): I25.10 - ATHSCL HEART DISEASE OF [place] CORONARY ARTERY W/O ANG PCTRS Status: Chronic (4) DM2 (diabetes mellitus, type 2) Status: Chronic (5) HLD (hyperlipidemia) Code(s): E78.5 - HYPERLIPIDEMIA, UNSPECIFIED Status: Chronic (6) HTN (hypertension) Code(s): I10 - ESSENTIAL (PRIMARY) HYPERTENSION Status: Chronic - Plan 06/09 Patient is not a candidate for remdesivir given his elevated creatinine. We will continue IV steroids, DVT prophylaxis with heparin. Will check INR and CRP in a.m. We will continue home medications. Patient has been on room air I will talk with the nurse to see if they can ambulate the patient to see if he desats. If he does not require oxygen he probably does not require steroids. 06/10 pt is not a candidate for remdesivir. Creatinine is improving. will continue to monitor. Tried to call pt's daughter Yvonne was unable to leave message since her voicemail has not been set up. Tried to call pt's grandly jerez which stated not taking calls at this time. 06/11 Patient improving with PT. Not requiring any oxygen his entire stay so will d/c dexamethasone. Creatinine improved with IV fluids, now stalled out around 2.8-2.9. Will discuss with Dr. Still and see if needs further inpatient care. Otherwise patient likely can go home with home health PT/OT if continues to improve in the next 24 hours. If not able to go home, will need SNF stay due to his Covid-19 positive status. 06/12 patient's creatinine this morning further improved. Cleared by nephrology for discharge and follow-up in 1 week. BP running high and holding Losartan. Will start Amlodipine. Case management was able to contact the family and they decided they wanted to take the patient home rather than send him to a snf facility. Patient's daughter will live with him and his . Home health agency has been arranged. Will encourage patient to drink fluids at home. [place] home.
[2020-06-12] MEDS ORDERED: Amlodipine 5 MG TAB PO SCH (09:00)
[2020-06-12 09:10] LABS: Anion Gap 12 mmol/L (10-20); BUN (Urea Nitrogen) 56 mg/dL (8.4-25.7); Calc. Creatinine Clearance 23 mL/min (70-130); Carbon Dioxide 18 mmol/L (23-31); Chloride 110 mmol/L (98-107); Glucose 85 mg/dL (83-110); Potassium 4.3 mmol/L (3.5-5.1); Sodium 136 mmol/L (136-145)
[2020-06-12 12:04] VITALS: BP 129/68; TEMP 97.2
--- NOTE | 2020-06-12 12:34 | PDOC.DS.DS ---
Provider Date of Admission: 06/08/20 23:20 Date of Discharge: 06/12/20 Admitting Provider: Akash Brewer MD Consultations: Nephrology (Dr. Still) Primary Care Physician: Unknown Course Hospital Course: 06/09 Patient is not a candidate for remdesivir given his elevated creatinine. We will continue IV steroids, DVT prophylaxis with heparin. Will check INR and CRP in a.m. We will continue home medications. Patient has been on room air I will talk with the nurse to see if they can ambulate the patient to see if he desats. If he does not require oxygen he probably does not require steroids. 06/10 pt is not a candidate for remdesivir. Creatinine is improving. will continue to monitor. Tried to call pt's daughter Yvonne was unable to leave message since her voicemail has not been set up. Tried to call pt's granddaughter which stated not taking calls at this time. 06/11 Patient improving with PT. Not requiring any oxygen his entire stay so will d/c dexamethasone. Creatinine improved with IV fluids, now stalled out around 2.8-2.9. Will discuss with Dr. Still and see if needs further inpatient care. Otherwise patient likely can go home with home health PT/OT if continues to improve in the next 24 hours. If not able to go home, will need SNF stay due to his Covid-19 positive status. 06/12 patient's creatinine this morning further improved. Cleared by nephrology for discharge and follow-up in 1 week. BP running high and holding Losartan. Will start Amlodipine. Case management was able to contact the family and they decided they wanted to take the patient home rather than send him to a residential facility. Patient's daughter will live with him and his . Home health agency has been arranged. Will encourage patient to drink fluids at home. [place] home. Pertinent Studies: Renal sonogram HISTORY: Renal failure. FINDINGS: The right kidney is 9.0 cm length and the left is 11.0 cm. Diffuse thinning of the cortex. No hydronephrosis. 3.9 cm exophytic cyst projects superiorly from the cortex of the left kidney. Urinary bladder has a normal appearance with bilateral ureteral jets. IMPRESSION : No acute abnormalities are demonstrated. Lab Results: 06/09/20 06:57 06/12/20 08:43 Abnormal Lab Results - Last 48 hrs 06/11/20 11:39: Chloride 108 H, Carbon Dioxide 18 L, BUN 67 H, Creatinine 2.92 H 06/12/20 08:43: Chloride 110 H, Carbon Dioxide 18 L, BUN 56 H, Creatinine 2.63 H Vitals: Vital Signs (12 hours) Temp Pulse Resp BP BP BP Pulse Ox 06/12/20 11:58 97.2 F L 86 17 129/68 100 06/12/20 09:07 99 06/12/20 08:38 66 154/75 H 06/12/20 08:10 97.6 F 66 18 154/75 H 99 06/12/20 04:05 97.2 F L 62 18 148/71 H 99 Weight Weight 184 lb 12.8 oz Physical Exam: The patient was seen and examined on the day of discharge. Problem Assessment: Patient with COVID-19 infection without pneumonia and acute on chronic renal failure. Improving with IV fluids. All of his nephrotoxic medications have been held. Patient has had some confusion in the hospital. Hospital-acquired delirium versus underlying dementia. He is ambulating well with physical therapy and is being discharged home with family Plan of Treatment: Discharge home to family's care with oral hydration and recheck creatinine in [address] Still (1) Acute kidney injury Code(s): N17.9 - ACUTE KIDNEY FAILURE, UNSPECIFIED Status: Acute (2) COVID-19 Code(s): U07.1 - COVID-19 Status: Acute (3) CAD (coronary artery disease) Code(s): I25.10 - ATHSCL HEART DISEASE OF [place] CORONARY ARTERY W/O ANG PCTRS Status: Chronic (4) DM2 (diabetes mellitus, type 2) Status: Chronic (5) HLD (hyperlipidemia) Code(s): E78.5 - HYPERLIPIDEMIA, UNSPECIFIED Status: Chronic (6) HTN (hypertension) Code(s): I10 - ESSENTIAL (PRIMARY) HYPERTENSION Status: Chronic Time Spent in discharge related activities (mins): 32 Plan Prescriptions: Amlodipine [Norvasc] 5 mg PO DAILY #30 tab Home Medications: Medication Instructions Recorded Confirmed Type Clopidogrel Bisulfate [Clopidogrel] 75 mg PO DAILY 04/08/14 06/08/20 History Levothyroxine Sodium 112 mcg PO DAILY 04/08/14 06/08/20 History Simvastatin [Zocor] 20 mg PO HS 04/08/14 06/08/20 History Acetaminophen [Tylenol Extra 1,000 mg PO HS 07/19/17 06/08/20 History Strength] Finasteride [Proscar] 5 mg PO DAILY 07/19/17 06/08/20 History Gabapentin [Neurontin] 100 mg PO BID 07/19/17 06/08/20 History Gluc Bryson/Chondro Bryson A/Vit C/Mn 1 cap PO DAILY 07/19/17 06/08/20 History [Glucosamine 1,500 Complex Capsule] Omeprazole 20 mg PO DAILY 07/19/17 06/08/20 History Tamsulosin HCl 0.4 mg PO DAILY 07/19/17 06/08/20 History Terbinafine HCl [Lamisil] 250 mg PO DAILY 07/19/17 06/08/20 History Benzonatate [Tessalon] 100 mg PO Q4H PRN #30 cap 07/20/17 06/08/20 Rx guaiFENesin ER [Mucinex] 1,200 mg PO Q12HR #60 tab 07/20/17 06/08/20 Rx Amlodipine [Norvasc] 5 mg PO DAILY #30 tab 06/12/20 Rx Allergies: No Known Drug Allergies Allergy (Verified 06/08/20 23:52) Activity:: Activity as Tolerated Nourishment:: Diabetic Diet, Heart Healthy Diet, Other (Encourage oral fluids) Therapies:: Home Health, Physical Therapy Equipment/Supplies:: Not Applicable IV Therapy:: Not Applicable Referrals: [facility] [Other] Calos Still MD [Active] - 7 Days (Recheck basic metabolic profile) Unknown,Unknown [Primary Care Provider] - 14 Days () Disposition: HOME HEALTH Quality CORE MEASURES:: N/A
--- NOTE | 2020-06-12 12:34 | PRG ---
DATE OF SERVICE: 06/12/2020 SUBJECTIVE: An 85-year-old gentleman being seen for acute kidney injury and no complaints reported. OBJECTIVE: GENERAL: The patient is resting. VITAL SIGNS: Afebrile, pulse 75, breathing at 16, blood pressure was 129/68. HEENT: Head normocephalic and atraumatic. Eyes intact, no ulcers. Nose intact, no ulcers. Ears intact, no ulcers. NECK: Supple. No JVD. CHEST: Symmetrical and clear. CARDIOVASCULAR: Shows S1 and S2, no rub, no murmur. GASTROINTESTINAL: Abdomen is soft, bowel sounds positive. EXTREMITIES: Show no edema or ulcers. SKIN: Shows no rash or petechiae. MUSCULOSKELETAL: Shows no joint swelling or stiffness. GENITOURINARY: Shows no Lugo or CVA tenderness. NEUROLOGIC: Motor intact. Cranial nerves intact. LABORATORY DATA: Reviewed. ASSESSMENT AND PLAN: 1. Chronic kidney disease, stage 4, stable. 2. Acute kidney injury, improved. 3. Hypertension, stable. 4. Anemia, stable. 5. Metabolic acidosis, stable. No indication for dialysis. Job ID: [id number]
== END 2020-06-12 15:44 | disposition home health service (06) | DRG 177 ==
LOC: T4-B 23:20
PROVIDERS: ADMIT Student in an Organized Health Care Education/Training Program; ATTEND Emergency Medicine
PROC: 8E0ZXY6 Isolation (ICD-10-PCS; principal; 2020-06-08)
DX: U07.1 COVID-19 (principal); J96.01 Acute respiratory failure with hypoxia; N17.9 Acute kidney failure, unspecified; F05 Delirium due to known physiological condition; E87.1 Hypo-osmolality and hyponatremia; N18.4 Chronic kidney disease, stage 4 (severe); E87.2 Acidosis; I25.10 Atherosclerotic heart disease of native coronary artery without angina pectoris; E11.22 Type 2 diabetes mellitus with diabetic chronic kidney disease; E78.5 Hyperlipidemia, unspecified; I12.9 Hypertensive chronic kidney disease with stage 1 through stage 4 chronic kidney disease, or unspecified chronic kidney disease; Y95 Nosocomial condition; F03.90 Unspecified dementia, unspecified severity, without behavioral disturbance, psychotic disturbance, mood disturbance, and anxiety; E03.9 Hypothyroidism, unspecified; D63.1 Anemia in chronic kidney disease; Z79.890 Hormone replacement therapy; Z79.899 Other long term (current) drug therapy; Z79.84 Long term (current) use of oral hypoglycemic drugs
CPT/HCPCS: 36415; 36416; 76770; 80048; 80053; 80061; 82728; 83036; 83615; 84443; 85025; 85610; 85730; 86140; J1100; J1644; J1815; J8540

== ENCOUNTER 2022-06-08 16:47 | Inpatient (IN) | payer MEDICARE, MEDICAID ==
[2022-06-08 17:35] LABS: #Eosinphils 0.4 thou/uL (0.0-0.7); #Monocytes 0.8 thou/uL (0.11-0.59); #Neutrophils 3.3 thou/uL (1.40-6.50); %Basophils 0.1 % (0.0-1.0); %Eosinophils 5.5 % (0.0-10.0); %Lymphocytes 39.3 % (21.0-51.0); %Neutrophils 44.1 % (42.0-75.0); Hemoglobin 10.1 g/dL (14.0-18.0); Mean Corpuscular HGB CONC 33.1 g/dL (32.0-36.0); Mean Corpuscular Hemoglobin 31.3 pg (27.0-31.0); Mean Corpuscular Volume 94.7 fl (78.0-98.0); Mean Platelet Volume 7.2 fL (7.4-10.4); Platelet Count 309 10x3/uL (130-400); RBC Distribution Width 13.6 % (11.5-14.5); Red Blood Cell (RBC) Count 3.23 mill/uL (4.70-6.10); White Blood Cell (WBC) Count 7.5 10x3/uL (4.8-10.8)
[2022-06-08 17:55] LABS: ALT (SGPT) Less than 7 U/L (8-55); AST (SGOT) 5 U/L (5-34); Acetaminophen Less than 10.0 mcg/mL (10.0-30.0); Albumin 3.1 g/dL (3.4-4.8); Alcohol Less than 10 mg/dL (Less than 10); Alkaline Phosphatase 81 U/L (40-110); Anion Gap 14 mmol/L (10-20); BUN (Urea Nitrogen) 36 mg/dL (8.4-25.7); Bilirubin, Total 0.3 mg/dL (0.2-1.2); Calc. Creatinine Clearance 0 mL/min (70-130); Calcium 7.7 mg/dL (7.8-10.44); Carbon Dioxide 17 mmol/L (23-31); Chloride 110 mmol/L (98-107); Estimated GFR 18; Globulin 3.9 g/dL (2.4-3.5); Glucose 103 mg/dL (83-110); Lipase 23 U/L (8-78); Potassium 3.9 mmol/L (3.5-5.1); Salicylate Less than 8.0 mg/dL (15.0-30.0); Sodium 137 mmol/L (136-145)
[2022-06-08 18:16] LABS: CKMB 1.7 ng/mL (0-6.6)
[2022-06-08 19:22] LABS: Bacteria/HPF 4+ HPF (None Seen); Bilirubin Negative (Negative); Blood, Urine 1+ (Negative); Clarity Extra Turbid (Clear); Glucose, Urine (Dipstick) 50 mg/dL (Negative); Ketone, Urine Negative (Negative); Leukocyte 500 Leu/uL (Negative); Nitrite Negative (Negative); Protein, Urine (Dipstick) 50 mg/dL (Neg-Trace); Specific Gravity, Urine 1.008 (1.002-1.036); Squamous Epithelial None Seen HPF (0-3); Urobilinogen Normal mg/dL (Less than 2); WBC/HPF Greater than 50 HPF (0-3)
[2022-06-08 19:27] LABS: Amphetamine Not Detected (NotDetected); Barbiturates Screen Not Detected (NotDetected); Benzodiazepine Screen Not Detected (NotDetected); Cocaine Metabolite Screen Not Detected (NotDetected); Methadone Not Detected (NotDetected); Methamphetamine Not Detected (NotDetected); Opiate Screen Not Detected (NotDetected); Oxycodone Screen Not Detected (NotDetected); Phencyclidine (PCP) Not Detected (NotDetected); THC/Cannabinoid Screen Not Detected (NotDetected); Tricyclic Screen Not Detected (NotDetected)
[2022-06-08] MEDS ORDERED: Vancomycin 1 GM/200 ML (FROZEN) BAG ONE ×2 (19:31→22:59)
[2022-06-08] MEDS ORDERED: Cefepime 2 GM VIAL ONE (19:31)
[2022-06-08] MEDS ORDERED: Ondansetron ODT 4 MG TAB PO PRN (20:03)
[2022-06-08] MEDS ORDERED: Acetaminophen 325 MG TAB PO PRN (20:03)
[2022-06-08] MEDS ORDERED: Senokot S 8.6-50 MG TAB PO PRN (20:03)
[2022-06-08] MEDS ORDERED: Dextrose 5 %-0.45 % NaCl 1,000 ML IV SCH (21:15)
[2022-06-09 01:42] LABS: #Eosinphils 0.4 thou/uL (0.0-0.7); #Lymphocytes 2.4 thou/uL (1.20-3.40); #Monocytes 0.7 thou/uL (0.11-0.59); #Neutrophils 3.9 thou/uL (1.40-6.50); %Basophils 0.1 % (0.0-1.0); %Eosinophils 5.8 % (0.0-10.0); %Lymphocytes 32.8 % (21.0-51.0); %Monocytes 9.3 % (0.0-10.0); %Neutrophils 52.1 % (42.0-75.0); Hemoglobin 8.7 g/dL (14.0-18.0); Mean Corpuscular HGB CONC 33.6 g/dL (32.0-36.0); Mean Corpuscular Hemoglobin 31.7 pg (27.0-31.0); Mean Corpuscular Volume 94.4 fl (78.0-98.0); Mean Platelet Volume 7.3 fL (7.4-10.4); Platelet Count 272 10x3/uL (130-400); RBC Distribution Width 13.4 % (11.5-14.5); Red Blood Cell (RBC) Count 2.76 mill/uL (4.70-6.10); White Blood Cell (WBC) Count 7.4 10x3/uL (4.8-10.8)
[2022-06-09 01:50] VITALS: BMI 23.4
[2022-06-09 02:06] LABS: Troponin I 0.023 ng/mL (< 0.028)
[2022-06-09 02:37] LABS: ALT (SGPT) Less than 7 U/L (8-55); AST (SGOT) 8 U/L (5-34); Albumin 2.5 g/dL (3.4-4.8); Alkaline Phosphatase 70 U/L (40-110); Anion Gap 13 mmol/L (10-20); BUN (Urea Nitrogen) 34 mg/dL (8.4-25.7); Bilirubin, Total 0.3 mg/dL (0.2-1.2); Calc. Creatinine Clearance 17 mL/min (70-130); Calcium 7.7 mg/dL (7.8-10.44); Carbon Dioxide 16 mmol/L (23-31); Chloride 112 mmol/L (98-107); Estimated GFR 19; Globulin 3.8 g/dL (2.4-3.5); Glucose 79 mg/dL (83-110); Potassium 4.5 mmol/L (3.5-5.1); Protein, Total 6.3 g/dL (5.8-8.1); Sodium 136 mmol/L (136-145)
[2022-06-09] MEDS: Famotidine 20 MG TAB PO SCH ×2 (03:46→22:10)
[2022-06-09] MEDS: Heparin 5,000 UNITS/ML VIAL SC SCH ×4 (03:53→22:09)
[2022-06-09] MEDS: Levothyroxine Sodium 112 MCG TAB PO SCH (06:44)
[2022-06-09] MEDS ORDERED: Amlodipine 5 MG TAB ONE (08:23)
[2022-06-09] MEDS ORDERED: cefTRIAXone\\ROCEPHIN 2 GM VIAL ONE (08:23)
[2022-06-09] MEDS: Amlodipine 5 MG TAB PO SCH (09:00)
[2022-06-09] MEDS ORDERED: cefTRIAXone\\ROCEPHIN 2 GM in Sodium Chloride 0.9% 100 ML IVPB SCH (09:00)
[2022-06-09] MEDS: Gabapentin 100 MG CAP PO SCH ×2 (09:01→22:10)
[2022-06-09] MEDS: Finasteride 5 MG TAB PO SCH (09:01)
[2022-06-09] MEDS: Tamsulosin HCl 0.4 MG CAP PO SCH (09:02)
[2022-06-09] MEDS: Dextrose 5% in Water 1,000 ML IV SCH (12:45)
[2022-06-09 15:28] LABS: Anion Gap 10 mmol/L (10-20); BUN (Urea Nitrogen) 32 mg/dL (8.4-25.7); Calc. Creatinine Clearance 16 mL/min (70-130); Calcium 7.8 mg/dL (7.8-10.44); Carbon Dioxide 19 mmol/L (23-31); Chloride 110 mmol/L (98-107); Estimated GFR 18; Glucose 98 mg/dL (83-110); Potassium 4.4 mmol/L (3.5-5.1); Sodium 135 mmol/L (136-145)
[2022-06-09] MEDS: Atorvastatin Calcium 10 MG TAB PO SCH (22:10)
[2022-06-10] MEDS: Dextrose 5% in Water 1,000 ML IV SCH ×2 (06:27→14:48)
[2022-06-10] MEDS: Levothyroxine Sodium 112 MCG TAB PO SCH (06:27)
[2022-06-10] MEDS: Amlodipine 5 MG TAB PO SCH (07:28)
[2022-06-10] MEDS: Gabapentin 100 MG CAP PO SCH ×2 (07:28→22:46)
[2022-06-10] MEDS: Finasteride 5 MG TAB PO SCH (07:28)
[2022-06-10] MEDS: Tamsulosin HCl 0.4 MG CAP PO SCH (07:29)
[2022-06-10] MEDS ORDERED: Meropenem 1 GM in Sodium Chloride 0.9% 100 ML IVPB SCH (08:00)
[2022-06-10] MEDS: Heparin 5,000 UNITS/ML VIAL SC SCH ×3 (09:32→22:47)
[2022-06-10 13:31] LABS: Anion Gap 13 mmol/L (10-20); BUN (Urea Nitrogen) 27 mg/dL (8.4-25.7); Calc. Creatinine Clearance 16 mL/min (70-130); Calcium 8.2 mg/dL (7.8-10.44); Carbon Dioxide 15 mmol/L (23-31); Chloride 109 mmol/L (98-107); Estimated GFR 18; Glucose 95 mg/dL (83-110); Potassium 4.1 mmol/L (3.5-5.1); Sodium 133 mmol/L (136-145)
[2022-06-10] MEDS: Sodium Bicarbonate Tab 325 MG TAB PO SCH ×2 (14:48→22:46)
[2022-06-10] MEDS: Meropenem 500 MG in Sodium Chloride 0.9% 100 ML IVPB SCH (15:46)
[2022-06-10] MEDS: Famotidine 20 MG TAB PO SCH (22:47)
[2022-06-10] MEDS: Atorvastatin Calcium 10 MG TAB PO SCH (22:47)
[2022-06-11] MEDS: Meropenem 500 MG in Sodium Chloride 0.9% 100 ML IVPB SCH ×2 (04:50→15:29)
[2022-06-11] MEDS: Dextrose 5% in Water 1,000 ML IV SCH (04:50)
[2022-06-11] MEDS: Levothyroxine Sodium 112 MCG TAB PO SCH (04:50)
[2022-06-11] MEDS: Sodium Bicarbonate Tab 325 MG TAB PO SCH ×3 (09:46→22:12)
[2022-06-11] MEDS: Heparin 5,000 UNITS/ML VIAL SC SCH ×3 (09:46→22:14)
[2022-06-11] MEDS: Finasteride 5 MG TAB PO SCH (09:46)
[2022-06-11] MEDS: Amlodipine 5 MG TAB PO SCH (09:46)
[2022-06-11] MEDS: Gabapentin 100 MG CAP PO SCH ×2 (09:46→22:12)
[2022-06-11] MEDS: Tamsulosin HCl 0.4 MG CAP PO SCH (09:46)
[2022-06-11 10:25] LABS: Anion Gap 12 mmol/L (10-20); BUN (Urea Nitrogen) 30 mg/dL (8.4-25.7); Calc. Creatinine Clearance 16 mL/min (70-130); Calcium 8.2 mg/dL (7.8-10.44); Carbon Dioxide 19 mmol/L (23-31); Chloride 106 mmol/L (98-107); Estimated GFR 18; Glucose 98 mg/dL (83-110); Potassium 3.9 mmol/L (3.5-5.1); Sodium 133 mmol/L (136-145)
[2022-06-11] MEDS: Famotidine 20 MG TAB PO SCH (22:13)
[2022-06-11] MEDS: Atorvastatin Calcium 10 MG TAB PO SCH (22:14)
[2022-06-12] MEDS: Meropenem 500 MG in Sodium Chloride 0.9% 100 ML IVPB SCH ×2 (05:56→16:20)
[2022-06-12] MEDS: Levothyroxine Sodium 112 MCG TAB PO SCH (05:56)
[2022-06-12 07:26] LABS: Albumin 2.8 g/dL (3.4-4.8); Anion Gap 12 mmol/L (10-20); BUN (Urea Nitrogen) 30 mg/dL (8.4-25.7); BUN/Creatinine Ratio 9.55; Calc. Creatinine Clearance 16 mL/min (70-130); Calcium 8.2 mg/dL (7.8-10.44); Carbon Dioxide 21 mmol/L (23-31); Chloride 106 mmol/L (98-107); Estimated GFR 18; Glucose 76 mg/dL (83-110); Phosphorus 3.7 mg/dL (2.3-4.7); Potassium 4.1 mmol/L (3.5-5.1); Sodium 135 mmol/L (136-145)
[2022-06-12] MEDS ORDERED: NIFEdipine XL 60 MG TAB PO SCH (09:00)
[2022-06-12] MEDS ORDERED: FLU VACC QS2022-23(65YR UP)/PF 240 MCG/0.7 ML SYRINGE IM ONE (09:00)
[2022-06-12] MEDS: Gabapentin 100 MG CAP PO SCH ×2 (09:05→20:04)
[2022-06-12] MEDS: Finasteride 5 MG TAB PO SCH (09:05)
[2022-06-12] MEDS: Heparin 5,000 UNITS/ML VIAL SC SCH ×3 (09:05→20:06)
[2022-06-12] MEDS: Tamsulosin HCl 0.4 MG CAP PO SCH (09:05)
[2022-06-12] MEDS: Sodium Bicarbonate Tab 325 MG TAB PO SCH ×3 (09:05→20:05)
[2022-06-12] MEDS: Atorvastatin Calcium 10 MG TAB PO SCH (20:02)
[2022-06-12] MEDS: Famotidine 20 MG TAB PO SCH (20:03)
[2022-06-12] MEDS: NIFEdipine XL 60 MG TAB PO SCH (20:05)
[2022-06-13] MEDS: Meropenem 500 MG in Sodium Chloride 0.9% 100 ML IVPB SCH ×2 (04:31→15:31)
[2022-06-13] MEDS: Levothyroxine Sodium 112 MCG TAB PO SCH (05:02)
[2022-06-13] MEDS: Sodium Bicarbonate Tab 325 MG TAB PO SCH ×2 (08:31→15:31)
[2022-06-13] MEDS: Gabapentin 100 MG CAP PO SCH (08:31)
[2022-06-13] MEDS: Tamsulosin HCl 0.4 MG CAP PO SCH (08:32)
[2022-06-13] MEDS: Finasteride 5 MG TAB PO SCH (08:32)
[2022-06-13] MEDS: Heparin 5,000 UNITS/ML VIAL SC SCH ×2 (08:32→15:30)
[2022-06-13 09:05] LABS: #Eosinphils 0.6 thou/uL (0.0-0.7); #Lymphocytes 2.7 thou/uL (1.20-3.40); #Monocytes 0.6 thou/uL (0.11-0.59); #Neutrophils 3.7 thou/uL (1.40-6.50); %Basophils 0.5 % (0.0-1.0); %Eosinophils 7.9 % (0.0-10.0); %Lymphocytes 35.8 % (21.0-51.0); %Monocytes 7.3 % (0.0-10.0); %Neutrophils 48.4 % (42.0-75.0); Hemoglobin 9.7 g/dL (14.0-18.0); Mean Corpuscular HGB CONC 35.5 g/dL (32.0-36.0); Mean Corpuscular Hemoglobin 32.9 pg (27.0-31.0); Mean Corpuscular Volume 92.8 fl (78.0-98.0); Mean Platelet Volume 7.5 fL (7.4-10.4); Platelet Count 285 10x3/uL (130-400); RBC Distribution Width 13.3 % (11.5-14.5); Red Blood Cell (RBC) Count 2.94 mill/uL (4.70-6.10); White Blood Cell (WBC) Count 7.6 10x3/uL (4.8-10.8)
[2022-06-13 09:31] LABS: Anion Gap 10 mmol/L (10-20); BUN (Urea Nitrogen) 33 mg/dL (8.4-25.7); Calc. Creatinine Clearance 15 mL/min (70-130); Calcium 8.1 mg/dL (7.8-10.44); Carbon Dioxide 21 mmol/L (23-31); Chloride 108 mmol/L (98-107); Estimated GFR 16; Glucose 79 mg/dL (83-110); Potassium 4.2 mmol/L (3.5-5.1); Sodium 135 mmol/L (136-145)
[2022-06-13] MEDS: NIFEdipine XL 60 MG TAB PO SCH (09:34)
[2022-06-13 17:31] VITALS: BP 151/76; TEMP 97.5
== END 2022-06-13 19:42 | DRG 871 ==
LOC: ERS 16:47 → ERHOLD 20:00 → OBSVTOIN 06-09 12:31 → T4-A 06-09 17:35
PROVIDERS: ADMIT Student in an Organized Health Care Education/Training Program; ATTEND Family Medicine
PROC: 3E03329 Introduction of Other Anti-infective into Peripheral Vein, Percutaneous Approach (ICD-10-PCS; principal; 2022-06-09)
PROC: 02HV33Z Insertion of Infusion Device into Superior Vena Cava, Percutaneous Approach (ICD-10-PCS; 2022-06-13)
PROC: B548ZZA Ultrasonography of Superior Vena Cava, Guidance (ICD-10-PCS; 2022-06-13)
DX: A41.51 Sepsis due to Escherichia coli [E. coli] (principal); G93.41 Metabolic encephalopathy; N17.9 Acute kidney failure, unspecified; N30.00 Acute cystitis without hematuria; Z16.12 Extended spectrum beta lactamase (ESBL) resistance; N18.4 Chronic kidney disease, stage 4 (severe); E87.1 Hypo-osmolality and hyponatremia; Z16.29 Resistance to other single specified antibiotic; I25.10 Atherosclerotic heart disease of native coronary artery without angina pectoris; N40.0 Benign prostatic hyperplasia without lower urinary tract symptoms; E03.9 Hypothyroidism, unspecified; E78.5 Hyperlipidemia, unspecified; K21.9 Gastro-esophageal reflux disease without esophagitis; D63.1 Anemia in chronic kidney disease; I12.9 Hypertensive chronic kidney disease with stage 1 through stage 4 chronic kidney disease, or unspecified chronic kidney disease; Z79.890 Hormone replacement therapy; Z79.899 Other long term (current) drug therapy
CPT/HCPCS: 36415; 36416; 36569; 51701; 70450; 71045; 74176; 74230; 80048; 80053; 80069; 80306; 80307; 81003; 81015; 82553; 83605; 83690; 84484; 85025; 87040; 87077; 87086; 87186; 93005; 96374; 96375; J0692; J0696; J1644; J2185; J3370-JW; J3490; J7042; J7070; U0003; U0005

== ENCOUNTER 2022-08-12 07:24 | Inpatient (IN) | payer MEDICARE, MEDICAID ==
[2022-08-12 08:03] LABS: #Basophils 0.1 thou/uL (0.0-0.2); #Eosinphils 0.7 thou/uL (0.0-0.7); #Lymphocytes 2.9 thou/uL (1.20-3.40); #Monocytes 0.6 thou/uL (0.11-0.59); #Neutrophils 5.2 thou/uL (1.40-6.50); %Basophils 0.6 % (0.0-1.0); %Eosinophils 7.3 % (0.0-10.0); %Lymphocytes 30.7 % (21.0-51.0); %Monocytes 6.6 % (0.0-10.0); %Neutrophils 54.8 % (42.0-75.0); Hemoglobin 10.6 g/dL (14.0-18.0); Mean Corpuscular HGB CONC 31.7 g/dL (32.0-36.0); Mean Corpuscular Hemoglobin 29.9 pg (27.0-31.0); Mean Corpuscular Volume 94.2 fl (78.0-98.0); Mean Platelet Volume 7.3 fL (7.4-10.4); Platelet Count 366 10x3/uL (130-400); RBC Distribution Width 13.9 % (11.5-14.5); Red Blood Cell (RBC) Count 3.55 mill/uL (4.70-6.10); White Blood Cell (WBC) Count 9.6 10x3/uL (4.8-10.8)
[2022-08-12 08:25] LABS: ALT (SGPT) 8 U/L (8-55); AST (SGOT) 12 U/L (5-34); Albumin 4.1 g/dL (3.4-4.8); Alkaline Phosphatase 93 U/L (40-110); Anion Gap 15 mmol/L (10-20); BUN (Urea Nitrogen) 43 mg/dL (8.4-25.7); Bilirubin, Total 0.4 mg/dL (0.2-1.2); Calc. Creatinine Clearance 0 mL/min (70-130); Calcium 8.9 mg/dL (7.8-10.44); Carbon Dioxide 19 mmol/L (23-31); Chloride 107 mmol/L (98-107); Estimated GFR 13; Globulin 4.5 g/dL (2.4-3.5); Glucose 80 mg/dL (83-110); Potassium 4.1 mmol/L (3.5-5.1); Protein, Total 8.6 g/dL (5.8-8.1); Sodium 137 mmol/L (136-145)
[2022-08-12] MEDS ORDERED: Lidocaine 1% w/Epinephrine 1:100K 20 ML VIAL ONE ×2 (08:32→11:44)
[2022-08-12] MEDS ORDERED: Boostrix 0.5 ML (Tdap) VIAL (>/=7 yrs of age) ONE (08:32)
[2022-08-12] MEDS ORDERED: Bacitracin 1 PK ONE (08:32)
[2022-08-12 09:31] LABS: Bacteria/HPF None Seen HPF (None Seen); Bilirubin Negative (Negative); Blood, Urine Trace (Negative); Clarity Clear (Clear); Glucose, Urine (Dipstick) Normal (Negative); Ketone, Urine Negative (Negative); Leukocyte Negative Leu/uL (Negative); Nitrite Negative (Negative); Protein, Urine (Dipstick) 100 mg/dL (Neg-Trace); RBC/HPF None Seen HPF (0-3); Specific Gravity, Urine 1.011 (1.002-1.036); Squamous Epithelial None Seen HPF (0-3); Urobilinogen Normal mg/dL (Less than 2); WBC/HPF 0-3 HPF (0-3); pH, Urine 6.5 (5.0-9.0)
[2022-08-12] MEDS ORDERED: HYDROcodone/Acetaminophen 5/325 mg Tablet PO PRN (12:57)
[2022-08-12] MEDS ORDERED: Senokot S 8.6-50 MG TAB PO PRN (12:57)
[2022-08-12] MEDS ORDERED: Ondansetron ODT 4 MG TAB PO PRN (12:57)
[2022-08-12] MEDS ORDERED: traMADol HCl 50 MG TAB PO PRN (13:02)
[2022-08-12] MEDS ORDERED: Benzonatate 100 MG CAP PO PRN (13:02)
[2022-08-12 13:19] VITALS: BMI 26.6
[2022-08-12] MEDS: Heparin 5,000 UNITS/ML VIAL SC SCH ×2 (14:35→21:41)
[2022-08-12] MEDS: Gabapentin 100 MG CAP PO SCH (21:12)
[2022-08-12] MEDS: Acetaminophen 500 MG TAB PO SCH (21:12)
[2022-08-12] MEDS: Atorvastatin Calcium 10 MG TAB PO SCH (21:12)
[2022-08-12] MEDS: guaiFENesin ER 600 MG TAB PO SCH (21:20)
[2022-08-13] MEDS: Levothyroxine Sodium 112 MCG TAB PO SCH (04:14)
[2022-08-13 07:14] LABS: #Eosinphils 0.6 thou/uL (0.0-0.7); #Lymphocytes 2.4 thou/uL (1.20-3.40); #Monocytes 0.6 thou/uL (0.11-0.59); #Neutrophils 3.9 thou/uL (1.40-6.50); %Basophils 0.4 % (0.0-1.0); %Eosinophils 8.4 % (0.0-10.0); %Lymphocytes 31.6 % (21.0-51.0); %Monocytes 8.1 % (0.0-10.0); %Neutrophils 51.5 % (42.0-75.0); Hemoglobin 8.5 g/dL (14.0-18.0); Mean Corpuscular Volume 93.9 fl (78.0-98.0); Mean Platelet Volume 7.5 fL (7.4-10.4); Platelet Count 315 10x3/uL (130-400); Red Blood Cell (RBC) Count 2.84 mill/uL (4.70-6.10); White Blood Cell (WBC) Count 7.6 10x3/uL (4.8-10.8)
[2022-08-13 07:36] LABS: ALT (SGPT) Less than 7 U/L (8-55); AST (SGOT) 10 U/L (5-34); Albumin 3.1 g/dL (3.4-4.8); Alkaline Phosphatase 75 U/L (40-110); Anion Gap 12 mmol/L (10-20); BUN (Urea Nitrogen) 43 mg/dL (8.4-25.7); Bilirubin, Total 0.4 mg/dL (0.2-1.2); Calc. Creatinine Clearance 14 mL/min (70-130); Calcium 8.3 mg/dL (7.8-10.44); Carbon Dioxide 19 mmol/L (23-31); Chloride 111 mmol/L (98-107); Estimated GFR 14; Globulin 3.7 g/dL (2.4-3.5); Glucose 80 mg/dL (83-110); Potassium 4.2 mmol/L (3.5-5.1); Protein, Total 6.8 g/dL (5.8-8.1); Sodium 138 mmol/L (136-145)
[2022-08-13] MEDS: guaiFENesin ER 600 MG TAB PO SCH ×2 (07:39→20:57)
[2022-08-13] MEDS ORDERED: FLU VACC QS2022-23(65YR UP)/PF 240 MCG/0.7 ML SYRINGE IM ONE (09:00)
[2022-08-13] MEDS ORDERED: Non-Formulary Item 1 EACH (Gluc Su/Chondro Su A/Vit C/Mn [Glucosamine 1,500 Complex Capsu PO SCH (09:00)
[2022-08-13] MEDS: Finasteride 5 MG TAB PO SCH (09:28)
[2022-08-13] MEDS: Gabapentin 100 MG CAP PO SCH ×2 (09:28→20:57)
[2022-08-13] MEDS: Tamsulosin HCl 0.4 MG CAP PO SCH (09:28)
[2022-08-13] MEDS: Amlodipine 5 MG TAB PO SCH (09:29)
[2022-08-13] MEDS: Famotidine 20 MG TAB PO SCH (09:29)
[2022-08-13] MEDS: Clopidogrel Bisulfate 75 MG TAB PO SCH (09:30)
[2022-08-13] MEDS: Heparin 5,000 UNITS/ML VIAL SC SCH ×3 (09:30→20:58)
[2022-08-13] MEDS: Terbinafine 250 MG TAB PO SCH (09:34)
[2022-08-13] MEDS: Sodium Chloride 0.9% 1,000 ML IV SCH (10:38)
[2022-08-13] MEDS: Atorvastatin Calcium 10 MG TAB PO SCH (20:57)
[2022-08-13] MEDS: Acetaminophen 500 MG TAB PO SCH (20:57)
[2022-08-14] MEDS: Sodium Chloride 0.9% 1,000 ML IV SCH (05:59)
[2022-08-14] MEDS: Levothyroxine Sodium 112 MCG TAB PO SCH (06:01)
[2022-08-14 06:56] LABS: #Eosinphils 0.6 thou/uL (0.0-0.7); #Lymphocytes 2.3 thou/uL (1.20-3.40); #Monocytes 0.5 thou/uL (0.11-0.59); #Neutrophils 3.1 thou/uL (1.40-6.50); %Basophils 0.3 % (0.0-1.0); %Eosinophils 8.9 % (0.0-10.0); %Lymphocytes 35.4 % (21.0-51.0); %Neutrophils 47.4 % (42.0-75.0); Hemoglobin 8.2 g/dL (14.0-18.0); Mean Corpuscular HGB CONC 31.8 g/dL (32.0-36.0); Mean Corpuscular Hemoglobin 30.1 pg (27.0-31.0); Mean Corpuscular Volume 94.5 fl (78.0-98.0); Mean Platelet Volume 7.2 fL (7.4-10.4); Platelet Count 290 10x3/uL (130-400); RBC Distribution Width 13.9 % (11.5-14.5); Red Blood Cell (RBC) Count 2.73 mill/uL (4.70-6.10); White Blood Cell (WBC) Count 6.5 10x3/uL (4.8-10.8)
[2022-08-14 07:16] LABS: ALT (SGPT) Less than 7 U/L (8-55); AST (SGOT) 11 U/L (5-34); Albumin 3.2 g/dL (3.4-4.8); Alkaline Phosphatase 72 U/L (40-110); Anion Gap 12 mmol/L (10-20); BUN (Urea Nitrogen) 39 mg/dL (8.4-25.7); Bilirubin, Total 0.2 mg/dL (0.2-1.2); Calc. Creatinine Clearance 15 mL/min (70-130); Carbon Dioxide 17 mmol/L (23-31); Chloride 109 mmol/L (98-107); Estimated GFR 15; Globulin 3.5 g/dL (2.4-3.5); Glucose 68 mg/dL (83-110); Protein, Total 6.7 g/dL (5.8-8.1); Sodium 134 mmol/L (136-145)
[2022-08-14] MEDS: guaiFENesin ER 600 MG TAB PO SCH ×2 (10:07→20:39)
[2022-08-14] MEDS: Tamsulosin HCl 0.4 MG CAP PO SCH (10:07)
[2022-08-14] MEDS: Clopidogrel Bisulfate 75 MG TAB PO SCH (10:07)
[2022-08-14] MEDS: Famotidine 20 MG TAB PO SCH (10:07)
[2022-08-14] MEDS: Finasteride 5 MG TAB PO SCH (10:07)
[2022-08-14] MEDS: Gabapentin 100 MG CAP PO SCH ×2 (10:07→20:38)
[2022-08-14] MEDS: Heparin 5,000 UNITS/ML VIAL SC SCH ×3 (10:08→20:39)
[2022-08-14] MEDS: Amlodipine 5 MG TAB PO SCH ×2 (10:08→20:39)
[2022-08-14] MEDS: Terbinafine 250 MG TAB PO SCH (10:08)
[2022-08-14] MEDS: Acetaminophen 500 MG TAB PO SCH (20:38)
[2022-08-14] MEDS: Atorvastatin Calcium 10 MG TAB PO SCH (20:39)
[2022-08-15] MEDS: Sodium Chloride 0.9% 1,000 ML IV SCH (02:02)
[2022-08-15] MEDS: Levothyroxine Sodium 112 MCG TAB PO SCH (05:49)
[2022-08-15 06:40] LABS: #Eosinphils 0.6 thou/uL (0.0-0.7); #Lymphocytes 2.5 thou/uL (1.20-3.40); #Monocytes 0.5 thou/uL (0.11-0.59); #Neutrophils 3.8 thou/uL (1.40-6.50); %Basophils 0.6 % (0.0-1.0); %Eosinophils 7.7 % (0.0-10.0); %Lymphocytes 33.2 % (21.0-51.0); %Monocytes 6.7 % (0.0-10.0); %Neutrophils 51.9 % (42.0-75.0); Hemoglobin 8.8 g/dL (14.0-18.0); Mean Corpuscular HGB CONC 33.5 g/dL (32.0-36.0); Mean Corpuscular Hemoglobin 31.2 pg (27.0-31.0); Mean Corpuscular Volume 93.1 fl (78.0-98.0); Mean Platelet Volume 7.4 fL (7.4-10.4); Platelet Count 281 10x3/uL (130-400); Red Blood Cell (RBC) Count 2.81 mill/uL (4.70-6.10); White Blood Cell (WBC) Count 7.4 10x3/uL (4.8-10.8)
[2022-08-15 06:56] LABS: ALT (SGPT) Less than 7 U/L (8-55); AST (SGOT) 10 U/L (5-34); Albumin 3.4 g/dL (3.4-4.8); Alkaline Phosphatase 78 U/L (40-110); Anion Gap 12 mmol/L (10-20); BUN (Urea Nitrogen) 40 mg/dL (8.4-25.7); Bilirubin, Total 0.3 mg/dL (0.2-1.2); Calc. Creatinine Clearance 14 mL/min (70-130); Calcium 8.3 mg/dL (7.8-10.44); Carbon Dioxide 18 mmol/L (23-31); Chloride 109 mmol/L (98-107); Estimated GFR 15; Globulin 3.6 g/dL (2.4-3.5); Glucose 66 mg/dL (83-110); Potassium 4.2 mmol/L (3.5-5.1); Sodium 135 mmol/L (136-145)
[2022-08-15 08:35] VITALS: BP 177/72; TEMP 97.3
[2022-08-15] MEDS: Famotidine 20 MG TAB PO SCH (08:51)
[2022-08-15] MEDS: Gabapentin 100 MG CAP PO SCH (08:51)
[2022-08-15] MEDS: Heparin 5,000 UNITS/ML VIAL SC SCH (08:51)
[2022-08-15] MEDS: Finasteride 5 MG TAB PO SCH (08:52)
[2022-08-15] MEDS: Amlodipine 5 MG TAB PO SCH (08:52)
[2022-08-15] MEDS: Terbinafine 250 MG TAB PO SCH (08:52)
[2022-08-15] MEDS: Clopidogrel Bisulfate 75 MG TAB PO SCH (08:52)
[2022-08-15] MEDS: Tamsulosin HCl 0.4 MG CAP PO SCH (08:52)
[2022-08-15] MEDS: guaiFENesin ER 600 MG TAB PO SCH (08:53)
== END 2022-08-15 12:31 | DRG 683 ==
LOC: ERS 07:24 → T4-B 13:10 → OBSVTOIN 08-13 13:45
PROVIDERS: ADMIT Hospitalist; ATTEND Hospitalist
PROC: 0HQ0XZZ Repair Scalp Skin, External Approach (ICD-10-PCS; principal; 2022-08-13)
DX: N17.9 Acute kidney failure, unspecified (principal); E87.20 Acidosis, unspecified; I12.9 Hypertensive chronic kidney disease with stage 1 through stage 4 chronic kidney disease, or unspecified chronic kidney disease; M17.11 Unilateral primary osteoarthritis, right knee; E03.9 Hypothyroidism, unspecified; I25.10 Atherosclerotic heart disease of native coronary artery without angina pectoris; N40.0 Benign prostatic hyperplasia without lower urinary tract symptoms; E78.5 Hyperlipidemia, unspecified; K21.9 Gastro-esophageal reflux disease without esophagitis; N18.4 Chronic kidney disease, stage 4 (severe); D63.1 Anemia in chronic kidney disease; S01.01XA Laceration without foreign body of scalp, initial encounter; W17.89XA Other fall from one level to another, initial encounter; Y92.122 Bedroom in nursing home as the place of occurrence of the external cause; Z79.899 Other long term (current) drug therapy; Z79.02 Long term (current) use of antithrombotics/antiplatelets; Z79.890 Hormone replacement therapy
CPT/HCPCS: 36415; 36416; 70450; 72125; 72170; 76770; 80053; 81003; 81015; 85025; 90715; 93005; 96372; G0378; J1644; J7050

== ENCOUNTER 2022-08-15 21:14 | Emergency (ER) | payer OTHER, MEDICARE, MEDICAID ==
[2022-08-15 22:34] LABS: #Eosinphils 0.5 thou/uL (0.0-0.7); #Lymphocytes 1.9 thou/uL (1.20-3.40); #Monocytes 0.5 thou/uL (0.11-0.59); #Neutrophils 4.7 thou/uL (1.40-6.50); %Basophils 0.3 % (0.0-1.0); %Eosinophils 6.7 % (0.0-10.0); %Lymphocytes 24.9 % (21.0-51.0); %Neutrophils 61.1 % (42.0-75.0); Mean Corpuscular HGB CONC 34.2 g/dL (32.0-36.0); Mean Corpuscular Hemoglobin 31.3 pg (27.0-31.0); Mean Corpuscular Volume 91.6 fl (78.0-98.0); Mean Platelet Volume 7.5 fL (7.4-10.4); Platelet Count 317 10x3/uL (130-400); RBC Distribution Width 13.6 % (11.5-14.5); Red Blood Cell (RBC) Count 2.86 mill/uL (4.70-6.10); White Blood Cell (WBC) Count 7.6 10x3/uL (4.8-10.8)
[2022-08-15 22:55] LABS: ALT (SGPT) Less than 7 U/L (8-55); AST (SGOT) 11 U/L (5-34); Albumin 3.4 g/dL (3.4-4.8); Alkaline Phosphatase 87 U/L (40-110); Anion Gap 13 mmol/L (10-20); BUN (Urea Nitrogen) 45 mg/dL (8.4-25.7); Bilirubin, Total 0.3 mg/dL (0.2-1.2); CK (CPK) 94 U/L (30-200); Calc. Creatinine Clearance 0 mL/min (70-130); Calcium 8.6 mg/dL (7.8-10.44); Carbon Dioxide 17 mmol/L (23-31); Chloride 108 mmol/L (98-107); Estimated GFR 14; Globulin 4.1 g/dL (2.4-3.5); Glucose 161 mg/dL (83-110); Potassium 4.4 mmol/L (3.5-5.1); Protein, Total 7.5 g/dL (5.8-8.1); Sodium 134 mmol/L (136-145)
== END 2022-08-16 00:05 ==
LOC: ERS 21:14
DX: S06.9XAA Unspecified intracranial injury with loss of consciousness status unknown, initial encounter (principal); I25.10 Atherosclerotic heart disease of native coronary artery without angina pectoris; I12.0 Hypertensive chronic kidney disease with stage 5 chronic kidney disease or end stage renal disease; E11.22 Type 2 diabetes mellitus with diabetic chronic kidney disease; N18.6 End stage renal disease; D63.1 Anemia in chronic kidney disease; W18.30XA Fall on same level, unspecified, initial encounter; Y92.219 Unspecified school as the place of occurrence of the external cause
CPT/HCPCS: 36415; 70450; 72125; 82550; 93005